=== PATIENT | female | born 1945 | race Caucasian/White ===

== ENCOUNTER → 2016-08-04 | Outpatient (CLI) | payer MEDICARE ==
[~2016-08-04] MED LIST: ACET167L PO; ASPI81CH43 GT; METO25TA5 PO; MULTTAB99 PO; NAPR220C PO; NITR400A5 TL
[2016-08-04 13:15] LABS: Albumin 4.3 g/dL (3.4-5.0); Bilirubin, Total 1.1 mg/dL (0.2-1.0); Total Protein 7.8 g/dL (6.4-8.2)
[2016-08-04 13:16] LABS: Bilirubin, Direct 0.3 mg/dL (0-0.2)
== END | disposition home or self-care (01) ==
LOC: LAB 08:21
PROVIDERS: ATTEND Internal Medicine Cardiovascular Disease
DX: E78.00 Pure hypercholesterolemia, unspecified (principal); K74.1 Hepatic sclerosis
CPT/HCPCS: 36415; 80061; 80076

== ENCOUNTER → 2017-09-21 | Outpatient (CLI) | payer MEDICARE ==
[2017-09-21 11:53] LABS: Urine Blood Negative /uL (Negative); Urine Specific Gravity 1.024 (1.001-1.035)
[2017-09-21 12:03] LABS: Basophils # (auto) 0.1 uL; Basophils % (auto) 1.1 % (0.0-2.0); Eosinophils # (auto) 0.2 uL; Eosinophils % (auto) 2.8 % (0.0-7.0); Hematocrit 47.8 % (36.0-46.0); Hemoglobin 15.9 g/dL (12.2-16.2); Lymphocytes # (auto) 1.1 uL; Lymphocytes % (auto) 14.2 % (10.0-50.0); Mean Corpuscular Hgb Conc. 33.2 g/dL (32.0-36.0); Mean Corpuscular Volume 90.2 fL (80.0-100.0); Monocytes # (auto) 0.5 uL; Monocytes % (auto) 6.3 % (0.0-12.0); Neutrophils # (auto) 5.8 uL; Neutrophils % (auto) 75.6 % (37.0-80.0); Nucleated Red Blood Cells % 0.4 %; Platelet Count (auto) 298 10^3/uL (140-450); Red Blood Cells 5.31 10^6/uL (4.0-5.20); Red Cell Distribution Width 14.2 % (11.8-14.3); White Blood Cell 7.7 10^3/uL (4.4-10.8)
[2017-09-21 12:07] LABS: Albumin 4.1 g/dL (3.4-5.0); Potassium 4.5 mmol/L (3.5-5.1); Total Protein 7.9 g/dL (6.4-8.2)
[2017-09-21 12:15] LABS: Free T4 (Free Thyroxine) 1.31 ng/dL (0.89-1.76)
[2017-09-21 12:53] LABS: BUN/Creatinine Ratio 14.6; Bilirubin, Total 0.7 mg/dL (0.2-1.0); Calcium 9.3 mg/dL (8.5-10.1)
== END | disposition home or self-care (01) ==
LOC: LAB 08:15
PROVIDERS: ATTEND Internal Medicine
DX: Z00.01 Encounter for general adult medical examination with abnormal findings (principal); E03.9 Hypothyroidism, unspecified; E11.9 Type 2 diabetes mellitus without complications; E55.9 Vitamin D deficiency, unspecified; D51.9 Vitamin B12 deficiency anemia, unspecified; N39.0 Urinary tract infection, site not specified
CPT/HCPCS: 36415; 80053; 80061; 81003; 82306; 82607; 83036; 84439; 84443; 85025

== ENCOUNTER → 2018-10-18 | Outpatient (CLI) | payer MEDICARE ==
[~2018-10-18] MED LIST changes: +ASPI81CH43 PO; +LISI-646 PO
[2018-10-18 09:33] LABS: Basophils # (auto) 0.1 uL; Basophils % (auto) 1.3 % (0.0-2.0); Eosinophils # (auto) 0.2 uL; Eosinophils % (auto) 2.6 % (0.0-7.0); Hematocrit 46.5 % (36.0-46.0); Hemoglobin 15.4 g/dL (12.2-16.2); Lymphocytes # (auto) 1.1 uL; Mean Corpuscular Hgb Conc. 33.1 g/dL (32.0-36.0); Mean Corpuscular Volume 90.5 fL (80.0-100.0); Monocytes # (auto) 0.4 uL; Monocytes % (auto) 7.2 % (0.0-12.0); Neutrophils # (auto) 4.2 uL; Neutrophils % (auto) 70.9 % (37.0-80.0); Nucleated Red Blood Cells % 0.1 %; Platelet Count (auto) 282 10^3/uL (140-450); Red Blood Cells 5.14 10^6/uL (4.0-5.20)
[2018-10-18 09:38] LABS: Potassium 4.5 mmol/L (3.5-5.1)
[2018-10-18 09:47] LABS: Albumin 4.1 g/dL (3.4-5.0); BUN/Creatinine Ratio 15.6; Bilirubin, Total 0.8 mg/dL (0.2-1.0); Calcium 9.3 mg/dL (8.5-10.1); Total Protein 7.7 g/dL (6.4-8.2)
== END | disposition home or self-care (01) ==
LOC: LAB 08:39
PROVIDERS: ATTEND Physician Assistant
DX: E78.2 Mixed hyperlipidemia (principal); I10 Essential (primary) hypertension; R42 Dizziness and giddiness; M54.5 Low back pain; Z95.1 Presence of aortocoronary bypass graft
CPT/HCPCS: 36415; 80053; 80061; 84443; 85025

== ENCOUNTER 2019-05-22 06:02 | Emergency (ER) | payer MEDICARE ==
[~2019-05-22] VITALS: Ht 167.6 cm; Wt 64.9 kg
[~2019-05-22 06:02] MED LIST changes: -ASPI81CH43 GT
[2019-05-22 06:43] VITALS: BP 147/69
[2019-05-22] MEDS ORDERED: HYDROcodone-ACET 5/325MG TAB PO ONE (07:15)
== END 2019-05-22 08:45 | disposition home or self-care (01) ==
LOC: EDBD 06:02 → ER 06:02
DX: M48.061 Spinal stenosis, lumbar region without neurogenic claudication (principal); M54.16 Radiculopathy, lumbar region; I11.0 Hypertensive heart disease with heart failure; I50.9 Heart failure, unspecified; E78.5 Hyperlipidemia, unspecified; Z87.440 Personal history of urinary (tract) infections; Z98.61 Coronary angioplasty status; Z95.1 Presence of aortocoronary bypass graft; Z88.2 Allergy status to sulfonamides
CPT/HCPCS: 72131; 81002

== ENCOUNTER → 2019-06-24 | Outpatient (CLI) | payer MEDICARE ==
[2019-06-24 11:00] LABS: Basophils # (auto) 0.1 uL; Basophils % (auto) 1.2 % (0.0-2.0); Eosinophils # (auto) 0.1 uL; Eosinophils % (auto) 1.5 % (0.0-7.0); Hematocrit 45.5 % (36.0-46.0); Hemoglobin 15.7 g/dL (12.2-16.2); Lymphocytes # (auto) 0.8 uL; Lymphocytes % (auto) 12.7 % (10.0-50.0); Mean Corpuscular Hemoglobin 31.1 pg (28.0-32.0); Mean Corpuscular Hgb Conc. 34.5 g/dL (32.0-36.0); Mean Corpuscular Volume 90.1 fL (80.0-100.0); Monocytes # (auto) 0.6 uL; Monocytes % (auto) 9.2 % (0.0-12.0); Neutrophils % (auto) 75.4 % (37.0-80.0); Nucleated Red Blood Cells % 0.1 %; Platelet Count (auto) 328 10^3/uL (140-450); Red Blood Cells 5.05 10^6/uL (4.0-5.20); Red Cell Distribution Width 14.3 % (11.8-14.3); White Blood Cell 6.6 10^3/uL (4.4-10.8)
[2019-06-24 11:23] LABS: Albumin 4.2 g/dL (3.4-5.0); Calcium 9.3 mg/dL (8.5-10.1); Potassium 3.8 mmol/L (3.5-5.1); Uric Acid 4.4 mg/dL (2.6-6.0)
[2019-06-24 11:28] LABS: BUN/Creatinine Ratio 13.1; Bilirubin, Total 0.7 mg/dL (0.2-1.0); Total Protein 8.1 g/dL (6.4-8.2)
== END | disposition home or self-care (01) ==
LOC: LAB 10:21
PROVIDERS: ATTEND Internal Medicine
DX: E78.00 Pure hypercholesterolemia, unspecified (principal); I10 Essential (primary) hypertension; M25.50 Pain in unspecified joint; M79.10 Myalgia, unspecified site
CPT/HCPCS: 36415; 80053; 80061; 82550; 84550; 85025; 86200; 86431

== ENCOUNTER → 2021-02-16 | Outpatient (CLI) | payer MEDICARE ==
[~2021-02-16] VITALS: Ht 157.5 cm; Wt 76.2 kg
[~2021-02-16] MED LIST changes: +ADENOSINE 64 MG in GIVE UN-DILUTED 0 ML IV ONE; +ADENOSINE 90 MG/30 ML INJ IV ONE; -LISI-646 PO; +LISI20TA28 PO
== END | disposition home or self-care (01) ==
LOC: Rad HDHVI 08:49
PROVIDERS: ATTEND Internal Medicine
DX: Z01.810 Encounter for preprocedural cardiovascular examination (principal); I10 Essential (primary) hypertension; E78.5 Hyperlipidemia, unspecified; R07.9 Chest pain, unspecified; I25.2 Old myocardial infarction; Z95.1 Presence of aortocoronary bypass graft; Z82.49 Family history of ischemic heart disease and other diseases of the circulatory system
CPT/HCPCS: 78452; 93005; 96374; 96375; A9500; J0153

== ENCOUNTER → 2021-06-14 | Outpatient (CLI) | payer MEDICARE ==
[~2021-06-14] MED LIST changes: -ADENOSINE 64 MG in GIVE UN-DILUTED 0 ML IV ONE; -ADENOSINE 90 MG/30 ML INJ IV ONE
[2021-06-14 11:26] LABS: Urine Blood Negative /uL (Negative); Urine Specific Gravity 1.026 (1.001-1.035)
[2021-06-14 11:33] LABS: Basophils # (auto) 0.1 10 ^3/uL (0-0.2); Basophils % (auto) 0.6 % (0.0-2.0); Eosinophils # (auto) 0.2 10 ^3/uL (0-0.8); Hematocrit 42.1 % (36.0-46.0); Hemoglobin 14.1 g/dL (12.2-16.2); Lymphocytes # (auto) 1.2 10 ^3/uL (0.4-5.4); Lymphocytes % (auto) 15.2 % (10.0-50.0); Mean Corpuscular Hemoglobin 29.8 pg (28.0-32.0); Mean Corpuscular Hgb Conc. 33.4 g/dL (32.0-36.0); Mean Corpuscular Volume 89.2 fL (80.0-100.0); Monocytes # (auto) 0.7 10 ^3/uL (0-1.3); Monocytes % (auto) 8.1 % (0.0-12.0); Neutrophils % (auto) 74.1 % (37.0-80.0); Red Blood Cells 4.72 10^6/uL (4.0-5.20); Red Cell Distribution Width 14.5 % (11.8-14.3); White Blood Cell 8.1 10^3/uL (4.4-10.8)
[2021-06-14 11:34] LABS: Potassium 4.4 mmol/L (3.5-5.1)
[2021-06-14 11:41] LABS: BUN/Creatinine Ratio 20.5; Bilirubin, Total 0.5 mg/dL (0.2-1.0); Calcium 9.2 mg/dL (8.5-10.1); Free T4 (Free Thyroxine) 1.08 ng/dL (0.89-1.76); Total Protein 7.9 g/dL (6.4-8.2)
== END | disposition home or self-care (01) ==
LOC: LAB 10:06
PROVIDERS: ATTEND Internal Medicine
DX: E11.9 Type 2 diabetes mellitus without complications (principal); D51.3 Other dietary vitamin B12 deficiency anemia; D64.9 Anemia, unspecified; E55.9 Vitamin D deficiency, unspecified; I10 Essential (primary) hypertension; R00.2 Palpitations; R53.1 Weakness; R30.0 Dysuria
CPT/HCPCS: 36415; 80053; 80061; 81003; 82607; 83036; 84439; 84443; 85025; 87086

== ENCOUNTER 2021-10-23 18:49 | Inpatient (IN) | payer MEDICARE ==
[~2021-10-23] VITALS: Ht 160 cm; Wt 81.0 kg
[2021-10-23 20:31] LABS: Basophils # (auto) 0.1 10 ^3/uL (0-0.2); Basophils % (auto) 0.5 % (0.0-2.0); Eosinophils # (auto) 0 10 ^3/uL (0-0.8); Eosinophils % (auto) 0.1 % (0.0-7.0); Hematocrit 46.5 % (36.0-46.0); Hemoglobin 15.9 g/dL (12.2-16.2); Lymphocytes # (auto) 0.9 10 ^3/uL (0.4-5.4); Lymphocytes % (auto) 7.1 % (10.0-50.0); Mean Corpuscular Hemoglobin 29.3 pg (28.0-32.0); Mean Corpuscular Hgb Conc. 34.2 g/dL (32.0-36.0); Mean Corpuscular Volume 85.8 fL (80.0-100.0); Monocytes % (auto) 7.5 % (0.0-12.0); Neutrophils % (auto) 84.8 % (37.0-80.0); Red Blood Cells 5.42 10^6/uL (4.0-5.20); Red Cell Distribution Width 13.4 % (11.8-14.3)
[2021-10-23 20:46] LABS: Albumin 4.2 g/dL (3.4-5.0); BUN/Creatinine Ratio 33.8; Calcium 9.1 mg/dL (8.5-10.1); Magnesium 3.6 mg/dL (1.6-2.6)
[2021-10-23 20:58] LABS: Total Protein 8.8 g/dL (6.4-8.2)
[2021-10-23 21:14] LABS: INR 1.12 (0.9-1.15); Partial Thromboplastin Time 29.7 sec (23.6-33.0)
[2021-10-23 21:20] LABS: Potassium 2.6 mmol/L (3.5-5.1)
[2021-10-24] MEDS ORDERED: SOD CHL 0.9%/ KCL 20MEQ 1,000 ML IV ONE
[2021-10-24] MEDS ORDERED: ASPirin 325 MG TAB PO ONE
[2021-10-24] MEDS ORDERED: TEMAZEPAM 15 MG CAP PO PRN (00:45)
[2021-10-24] MEDS ORDERED: ENOXAPARIN SOD 100 MG/1 ML SYRINGE SC ONE (00:45)
[2021-10-24] MEDS ORDERED: ONDANSETRON HCL 4 MG/2 ML VIAL IV PRN (00:45)
[2021-10-24] MEDS ORDERED: NITROGLYCERIN 0.4 MG SL TAB SL PRN (00:45)
[2021-10-24] MEDS ORDERED: MORPHINE SULFATE INJ 2 MG/ml SYRG IV PRN (00:45)
[2021-10-24 02:20] LABS: Urine Bacteria MANY /hpf (None Seen); Urine Blood Negative /uL (Negative); Urine Hyaline Cast MANY /lpf (0 - 2); Urine Specific Gravity 1.017 (1.001-1.035); Urine WBC 507 /hpf (0 - 5); Urine WBC Clumps PRESENT /hpf (None Seen)
[2021-10-24 08:00] VITALS: BP 111/61
[2021-10-24 08:40] LABS: Basophils # (auto) 0.1 10 ^3/uL (0-0.2); Basophils % (auto) 0.8 % (0.0-2.0); Eosinophils # (auto) 0 10 ^3/uL (0-0.8); Eosinophils % (auto) 0.4 % (0.0-7.0); Hematocrit 41.2 % (36.0-46.0); Hemoglobin 14.2 g/dL (12.2-16.2); Lymphocytes # (auto) 1.5 10 ^3/uL (0.4-5.4); Lymphocytes % (auto) 15.1 % (10.0-50.0); Mean Corpuscular Hemoglobin 29.8 pg (28.0-32.0); Mean Corpuscular Hgb Conc. 34.6 g/dL (32.0-36.0); Mean Corpuscular Volume 86.4 fL (80.0-100.0); Monocytes # (auto) 0.9 10 ^3/uL (0-1.3); Monocytes % (auto) 8.9 % (0.0-12.0); Neutrophils # (auto) 7.5 10 ^3/uL (1.6-8.6); Neutrophils % (auto) 74.8 % (37.0-80.0); Nucleated Red Blood Cells % 0.1 %; Red Blood Cells 4.77 10^6/uL (4.0-5.20); Red Cell Distribution Width 13.6 % (11.8-14.3); White Blood Cell 10.1 10^3/uL (4.4-10.8)
[2021-10-24 08:43] LABS: Albumin 3.6 g/dL (3.4-5.0); Calcium 8.2 mg/dL (8.5-10.1); Potassium 3.1 mmol/L (3.5-5.1)
[2021-10-24 08:46] LABS: BUN/Creatinine Ratio 37.7; Total Protein 7.7 g/dL (6.4-8.2)
[2021-10-24] MEDS: SODIUM CHLORIDE 0.9% 1,000 ML IV SCH ×2 (09:48→23:43)
[2021-10-24] MEDS: cefTRIAXone 1GM/50ML D5W 50 ML IV SCH (09:48)
[2021-10-24] MEDS: PANTOPRAZOLE 40 MG TAB PO SCH (09:49)
[2021-10-24] MEDS ORDERED: METOPROLOL SUCCINATE XL 50 MG TAB PO SCH (10:00)
[2021-10-24] MEDS ORDERED: ASPirin 81 mg TAB PO SCH (10:00)
[2021-10-24] MEDS ORDERED: SACUBITRIL-VALSARTAN 24mg/26mg TAB PO SCH (10:00)
[2021-10-24] MEDS ORDERED: POTASSIUM EFFERVESENT TAB 25 MEQ PO ONE ×2 (10:00)
[2021-10-24] MEDS: CARVEDILOL 3.125 MG TAB PO SCH ×2 (10:47→23:10)
[2021-10-24 12:00] VITALS: BP 113/57
[2021-10-24] MEDS ORDERED: SACU1TAB PO (12:53)
[2021-10-24] MEDS ORDERED: ACET-1158 PO (13:05)
[2021-10-24 15:12] LABS: BUN/Creatinine Ratio 40.1; Calcium 8.4 mg/dL (8.5-10.1); Potassium 3.3 mmol/L (3.5-5.1)
[2021-10-24 16:00] VITALS: BP 105/55
[2021-10-24 19:19] LABS: Urine Bacteria FEW /hpf (None Seen); Urine Blood Negative /uL (Negative); Urine Specific Gravity 1.016 (1.001-1.035); Urine WBC 28 /hpf (0 - 5)
[2021-10-24 20:00] VITALS: BP 136/55
[2021-10-24 21:51] VITALS: BP 106/55
[2021-10-24] MEDS: ATORVASTATIN 20 MG TAB PO SCH (23:10)
[2021-10-25] VITALS (7 sets, daily range): BP systolic 111–157; BP diastolic 52–66
[2021-10-25 05:14] LABS: Basophils # (auto) 0.1 10 ^3/uL (0-0.2); Eosinophils # (auto) 0.2 10 ^3/uL (0-0.8); Eosinophils % (auto) 3.2 % (0.0-7.0); Hematocrit 37.9 % (36.0-46.0); Hemoglobin 12.9 g/dL (12.2-16.2); Lymphocytes # (auto) 1.9 10 ^3/uL (0.4-5.4); Lymphocytes % (auto) 25.4 % (10.0-50.0); Mean Corpuscular Hemoglobin 30.1 pg (28.0-32.0); Mean Corpuscular Volume 88.8 fL (80.0-100.0); Monocytes # (auto) 0.8 10 ^3/uL (0-1.3); Monocytes % (auto) 11.5 % (0.0-12.0); Neutrophils # (auto) 4.3 10 ^3/uL (1.6-8.6); Neutrophils % (auto) 58.9 % (37.0-80.0); Red Blood Cells 4.27 10^6/uL (4.0-5.20); Red Cell Distribution Width 13.5 % (11.8-14.3); White Blood Cell 7.3 10^3/uL (4.4-10.8)
[2021-10-25] MEDS: SODIUM CHLORIDE 0.9% 1,000 ML IV SCH ×2 (05:30→17:17)
[2021-10-25 05:33] LABS: Albumin 3.1 g/dL (3.4-5.0); BUN/Creatinine Ratio 43.2; Calcium 8.3 mg/dL (8.5-10.1); Magnesium 3.1 mg/dL (1.6-2.6); Potassium 3.1 mmol/L (3.5-5.1)
[2021-10-25 05:36] LABS: Bilirubin, Total 0.5 mg/dL (0.2-1.0); Total Protein 6.6 g/dL (6.4-8.2)
[2021-10-25] MEDS ORDERED: POTASSIUM EFFERVESENT TAB 25 MEQ PO ONE (08:00)
[2021-10-25] MEDS: cefTRIAXone 1GM/50ML D5W 50 ML IV SCH (09:29)
[2021-10-25] MEDS: ASPirin 81 mg TAB PO SCH (09:31)
[2021-10-25] MEDS: ENOXAPARIN SOD 150 MG/1 ML SYRINGE SC SCH (09:33)
[2021-10-25] MEDS: PANTOPRAZOLE 40 MG TAB PO SCH (09:33)
[2021-10-25] MEDS: CARVEDILOL 3.125 MG TAB PO SCH ×2 (09:33→21:52)
[2021-10-25] MEDS: ACETAMINOPHEN 325 MG TAB PO PRN (21:52)
[2021-10-25] MEDS: ATORVASTATIN 20 MG TAB PO SCH (21:53)
[2021-10-26] MEDS: SODIUM CHLORIDE 0.9% 1,000 ML IV SCH ×2 (03:03→06:44)
[2021-10-26 05:00] VITALS: BP 124/53
[2021-10-26 06:31] LABS: BUN/Creatinine Ratio 33.9; Potassium 3.5 mmol/L (3.5-5.1)
[2021-10-26 08:00] VITALS: BP 142/66
[2021-10-26] MEDS: cefTRIAXone 1GM/50ML D5W 50 ML IV SCH (09:15)
[2021-10-26] MEDS: CARVEDILOL 3.125 MG TAB PO SCH ×2 (09:16→21:50)
[2021-10-26] MEDS: ENOXAPARIN SOD 150 MG/1 ML SYRINGE SC SCH (09:16)
[2021-10-26] MEDS: ASPirin 81 mg TAB PO SCH (09:16)
[2021-10-26 12:00] VITALS: BP 128/57
[2021-10-26 16:00] VITALS: BP 120/65
[2021-10-26] MEDS: ATORVASTATIN 20 MG TAB PO SCH (21:50)
[2021-10-26 22:00] VITALS: BP 131/58
[2021-10-27 05:00] VITALS: BP 142/68
[2021-10-27] MEDS: ACETAMINOPHEN 325 MG TAB PO PRN ×2 (06:00→16:12)
[2021-10-27 06:23] LABS: BUN/Creatinine Ratio 22.9; Calcium 8.5 mg/dL (8.5-10.1); Magnesium 2.2 mg/dL (1.6-2.6); Potassium 4.1 mmol/L (3.5-5.1)
[2021-10-27 09:00] VITALS: BP 143/71
[2021-10-27] MEDS: ASPirin 81 mg TAB PO SCH (09:12)
[2021-10-27] MEDS: cefTRIAXone 1GM/50ML D5W 50 ML IV SCH (09:12)
[2021-10-27] MEDS: ENOXAPARIN SOD 150 MG/1 ML SYRINGE SC SCH (09:13)
[2021-10-27] MEDS: CARVEDILOL 3.125 MG TAB PO SCH ×2 (09:13→21:54)
[2021-10-27 13:00] VITALS: BP 144/75
[2021-10-27 16:36] VITALS: BP 133/59
[2021-10-27 17:03] LABS: Basophils # (auto) 0.1 10 ^3/uL (0-0.2); Basophils % (auto) 0.7 % (0.0-2.0); Eosinophils # (auto) 0.4 10 ^3/uL (0-0.8); Eosinophils % (auto) 4.1 % (0.0-7.0); Hematocrit 36.5 % (36.0-46.0); Hemoglobin 12.3 g/dL (12.2-16.2); Lymphocytes # (auto) 1.7 10 ^3/uL (0.4-5.4); Lymphocytes % (auto) 20.2 % (10.0-50.0); Mean Corpuscular Hemoglobin 30.1 pg (28.0-32.0); Mean Corpuscular Hgb Conc. 33.7 g/dL (32.0-36.0); Mean Corpuscular Volume 89.4 fL (80.0-100.0); Monocytes # (auto) 0.8 10 ^3/uL (0-1.3); Neutrophils # (auto) 5.6 10 ^3/uL (1.6-8.6); Nucleated Red Blood Cells % 0.1 %; Red Blood Cells 4.08 10^6/uL (4.0-5.20); Red Cell Distribution Width 13.6 % (11.8-14.3); White Blood Cell 8.6 10^3/uL (4.4-10.8)
[2021-10-27 17:19] LABS: BUN/Creatinine Ratio 21.1; Calcium 8.4 mg/dL (8.5-10.1); Potassium 4.1 mmol/L (3.5-5.1)
[2021-10-27 17:22] LABS: INR 1.11 (0.9-1.15); Partial Thromboplastin Time 46.3 sec (23.6-33.0)
[2021-10-27] MEDS: ATORVASTATIN 20 MG TAB PO SCH (21:55)
[2021-10-27 22:00] VITALS: BP 125/65
[2021-10-28 07:46] LABS: Basophils # (auto) 0.1 10 ^3/uL (0-0.2); Basophils % (auto) 0.8 % (0.0-2.0); Eosinophils # (auto) 0.5 10 ^3/uL (0-0.8); Eosinophils % (auto) 5.2 % (0.0-7.0); Lymphocytes # (auto) 1.9 10 ^3/uL (0.4-5.4); Lymphocytes % (auto) 21.4 % (10.0-50.0); Mean Corpuscular Hemoglobin 30.4 pg (28.0-32.0); Mean Corpuscular Hgb Conc. 33.5 g/dL (32.0-36.0); Monocytes # (auto) 0.7 10 ^3/uL (0-1.3); Monocytes % (auto) 7.6 % (0.0-12.0); Neutrophils # (auto) 5.8 10 ^3/uL (1.6-8.6); Nucleated Red Blood Cells % 0.1 %; Red Blood Cells 4.29 10^6/uL (4.0-5.20); Red Cell Distribution Width 13.7 % (11.8-14.3); White Blood Cell 8.9 10^3/uL (4.4-10.8)
[2021-10-28 08:03] LABS: INR 1.05 (0.9-1.15); Partial Thromboplastin Time 29.6 sec (23.6-33.0)
[2021-10-28 08:13] LABS: BUN/Creatinine Ratio 21.8; Potassium 4.2 mmol/L (3.5-5.1)
[2021-10-28 09:33] VITALS: BP 158/74
[2021-10-28] MEDS: ENOXAPARIN SOD 150 MG/1 ML SYRINGE SC SCH (09:58)
[2021-10-28] MEDS ORDERED: ANGIOMAX 250 MG VIAL IV ONE (11:06)
[2021-10-28] MEDS ORDERED: MIDAZOLAM HCL 2MG/2ML 2ml VIAL (1mg/ml) ONE (11:06)
[2021-10-28] MEDS ORDERED: fentaNYL CITRATE 100 MCG/2 ML VL ONE (11:06)
[2021-10-28] MEDS ORDERED: SODIUM CHL 0.9% 50 ML ONE (11:06)
[2021-10-28] MEDS ORDERED: LIDOCAINE 2%HCL (LOCAL ANESTH.) INJ 10ml MDV ONE (11:09)
[2021-10-28] MEDS ORDERED: IODIXANOL 320MG/ML 100ML BTL IV ONE ×2 (11:09→11:31)
[2021-10-28] MEDS ORDERED: TICAGRELOR 90 MG TAB ONE (11:43)
[2021-10-28 13:55] VITALS: BP 151/63
[2021-10-28] MEDS: ASPirin 81 mg TAB PO SCH (14:47)
[2021-10-28] MEDS: cefTRIAXone 1GM/50ML D5W 50 ML IV SCH (14:47)
[2021-10-28] MEDS: CARVEDILOL 3.125 MG TAB PO SCH ×2 (14:48→22:28)
[2021-10-28 17:04] VITALS: BP 145/77
[2021-10-28] MEDS: ACETAMINOPHEN 325 MG TAB PO PRN (20:15)
[2021-10-28 22:00] VITALS: BP 125/63
[2021-10-28] MEDS: TICAGRELOR 90 MG TAB PO SCH (22:27)
[2021-10-28] MEDS: ATORVASTATIN 20 MG TAB PO SCH (22:28)
[2021-10-29 05:00] VITALS: BP 145/74
[2021-10-29 06:14] LABS: Calcium 8.5 mg/dL (8.5-10.1); Potassium 4.7 mmol/L (3.5-5.1)
[2021-10-29 06:16] LABS: BUN/Creatinine Ratio 19.8
[2021-10-29 08:00] VITALS: BP 134/74
[2021-10-29 09:00] VITALS: BP_SYST 134; BP_SYST 145; BP_DIAS 74; BP_DIAS 83
[2021-10-29 09:21] LABS: Basophils # (auto) 0.1 10 ^3/uL (0-0.2); Basophils % (auto) 0.6 % (0.0-2.0); Eosinophils # (auto) 0.3 10 ^3/uL (0-0.8); Eosinophils % (auto) 3.8 % (0.0-7.0); Hemoglobin 12.2 g/dL (12.2-16.2); Lymphocytes # (auto) 1.1 10 ^3/uL (0.4-5.4); Lymphocytes % (auto) 12.3 % (10.0-50.0); Mean Corpuscular Hemoglobin 29.7 pg (28.0-32.0); Mean Corpuscular Hgb Conc. 32.9 g/dL (32.0-36.0); Mean Corpuscular Volume 90.3 fL (80.0-100.0); Monocytes # (auto) 0.6 10 ^3/uL (0-1.3); Monocytes % (auto) 6.7 % (0.0-12.0); Neutrophils # (auto) 6.7 10 ^3/uL (1.6-8.6); Neutrophils % (auto) 76.6 % (37.0-80.0); Nucleated Red Blood Cells % 0.1 %; Red Cell Distribution Width 13.5 % (11.8-14.3); White Blood Cell 8.8 10^3/uL (4.4-10.8)
[2021-10-29] MEDS: cefTRIAXone 1GM/50ML D5W 50 ML IV SCH (09:31)
[2021-10-29] MEDS: ASPirin 81 mg TAB PO SCH (09:31)
[2021-10-29] MEDS: CARVEDILOL 3.125 MG TAB PO SCH (09:32)
[2021-10-29] MEDS: TICAGRELOR 90 MG TAB PO SCH ×2 (09:32→17:10)
[2021-10-29 13:00] VITALS: BP_SYST 135; BP_DIAS 57; BP_DIAS 75
[2021-10-29] MEDS ORDERED: ATOR20TA PO (15:10)
[2021-10-29] MEDS ORDERED: TICA90TA PO (15:10)
[2021-10-29] MEDS ORDERED: SACU1TAB PO (15:10)
[2021-10-29] MEDS ORDERED: CARV6.25 PO (15:10)
[2021-10-29] MEDS ORDERED: ASPI-378 PO (15:11)
[2021-10-29 16:38] VITALS: BP 134/74
== END 2021-10-29 17:58 | disposition home health service (06) | DRG 246 ==
LOC: EDUNIT# 18:49 → ER 18:49 → EDBD 18:49 → TELE 10-24 00:45 → TELE-WESTW 10-24 03:13
PROVIDERS: ADMIT Nurse Practitioner; ATTEND Internal Medicine
PROC: 4A023N7 Measurement of Cardiac Sampling and Pressure, Left Heart, Percutaneous Approach (ICD-10-PCS; principal; 2021-10-28)
PROC: 027034Z Dilation of Coronary Artery, One Artery with Drug-eluting Intraluminal Device, Percutaneous Approach (ICD-10-PCS; 2021-10-28)
PROC: B211YZZ Fluoroscopy of Multiple Coronary Arteries using Other Contrast (ICD-10-PCS; 2021-10-28)
PROC: B215YZZ Fluoroscopy of Left Heart using Other Contrast (ICD-10-PCS; 2021-10-28)
DX: I21.4 Non-ST elevation (NSTEMI) myocardial infarction (principal); I50.43 Acute on chronic combined systolic (congestive) and diastolic (congestive) heart failure; N17.0 Acute kidney failure with tubular necrosis; N39.0 Urinary tract infection, site not specified; E87.1 Hypo-osmolality and hyponatremia; I13.0 Hypertensive heart and chronic kidney disease with heart failure and stage 1 through stage 4 chronic kidney disease, or unspecified chronic kidney disease; E87.6 Hypokalemia; E86.0 Dehydration; I44.7 Left bundle-branch block, unspecified; I25.10 Atherosclerotic heart disease of native coronary artery without angina pectoris; Z20.822 Contact with and (suspected) exposure to COVID-19; R73.03 Prediabetes; N18.32 Chronic kidney disease, stage 3b; B34.9 Viral infection, unspecified; E66.9 Obesity, unspecified; E78.5 Hyperlipidemia, unspecified; M19.90 Unspecified osteoarthritis, unspecified site; Z68.32 Body mass index [BMI] 32.0-32.9, adult; Z82.0 Family history of epilepsy and other diseases of the nervous system; Z82.49 Family history of ischemic heart disease and other diseases of the circulatory system; Z86.73 Personal history of transient ischemic attack (TIA), and cerebral infarction without residual deficits; Z95.1 Presence of aortocoronary bypass graft; Z88.8 Allergy status to other drugs, medicaments and biological substances
CPT/HCPCS: 36415; 71045; 76775; 80048; 80053; 80061; 81001; 82306; 83036; 83605; 83735; 83880; 84443; 84484; 85025; 85379; 85610; 85730; 86850; 86900; 86901; 87045; 87086; 92928; 93005; 93458; 96365; 96372; 97110; 97116; 97163; 97530; 99152; 99153; 99291; C1874; G0378; J0696; J2001; J2250; Q9967

== ENCOUNTER → 2021-12-20 | Outpatient (CLI) | payer MEDICARE ==
[~2021-12-20] MED LIST changes: +ACET-1158 PO; -ACET167L PO; -ASPI81CH43 PO; +CIP250T PO; +CLOP75TA70 PO; -LISI20TA28 PO; +MET500T PO; -METO25TA5 PO; -MULTTAB99 PO; -NAPR220C PO; -NITR400A5 TL
[2021-12-20 13:06] LABS: Basophils # (auto) 0.1 10 ^3/uL (0-0.2); Basophils % (auto) 0.8 % (0.0-2.0); Eosinophils # (auto) 0.1 10 ^3/uL (0-0.8); Eosinophils % (auto) 0.9 % (0.0-7.0); Hemoglobin 14.8 g/dL (12.2-16.2); Lymphocytes % (auto) 12.7 % (10.0-50.0); Mean Corpuscular Hemoglobin 30.1 pg (28.0-32.0); Mean Corpuscular Hgb Conc. 32.8 g/dL (32.0-36.0); Mean Corpuscular Volume 91.7 fL (80.0-100.0); Monocytes # (auto) 0.6 10 ^3/uL (0-1.3); Monocytes % (auto) 8.1 % (0.0-12.0); Neutrophils # (auto) 5.9 10 ^3/uL (1.6-8.6); Neutrophils % (auto) 77.5 % (37.0-80.0); Red Blood Cells 4.91 10^6/uL (4.0-5.20); Red Cell Distribution Width 14.2 % (11.8-14.3); White Blood Cell 7.7 10^3/uL (4.4-10.8)
[2021-12-20 13:28] LABS: BUN/Creatinine Ratio 10.3; Bilirubin, Total 0.6 mg/dL (0.2-1.0); Calcium 9.5 mg/dL (8.5-10.1)
[2021-12-20 14:02] LABS: Potassium 2.9 mmol/L (3.5-5.1)
== END | disposition home or self-care (01) ==
LOC: LAB 09:56
PROVIDERS: ATTEND Internal Medicine
DX: I10 Essential (primary) hypertension (principal); D64.9 Anemia, unspecified
CPT/HCPCS: 36415; 80053; 85025

== ENCOUNTER → 2022-02-07 | Outpatient (CLI) | payer MEDICARE ==
[2022-02-07 08:59] LABS: Basophils # (auto) 0.1 10 ^3/uL (0-0.2); Basophils % (auto) 0.8 % (0.0-2.0); Eosinophils # (auto) 0.2 10 ^3/uL (0-0.8); Eosinophils % (auto) 2.5 % (0.0-7.0); Hemoglobin 13.4 g/dL (12.2-16.2); Mean Corpuscular Hgb Conc. 33.5 g/dL (32.0-36.0); Mean Corpuscular Volume 89.5 fL (80.0-100.0); Monocytes # (auto) 0.5 10 ^3/uL (0-1.3); Monocytes % (auto) 7.5 % (0.0-12.0); Neutrophils # (auto) 5.2 10 ^3/uL (1.6-8.6); Neutrophils % (auto) 75.2 % (37.0-80.0); Red Blood Cells 4.47 10^6/uL (4.0-5.20); Red Cell Distribution Width 13.9 % (11.8-14.3); White Blood Cell 6.9 10^3/uL (4.4-10.8)
== END | disposition home or self-care (01) ==
LOC: LAB 08:40
PROVIDERS: ATTEND Internal Medicine
DX: I25.10 Atherosclerotic heart disease of native coronary artery without angina pectoris (principal); I10 Essential (primary) hypertension; E87.6 Hypokalemia
CPT/HCPCS: 36415; 84132; 84443; 85025

== ENCOUNTER 2022-05-09 11:18 | Inpatient (IN) | payer MEDICARE, MEDICAID ==
[~2022-05-09] VITALS: Ht 167.6 cm; Wt 79.5 kg
[2022-05-09 12:08] LABS: Basophils # (auto) 0.1 10 ^3/uL (0-0.2); Eosinophils # (auto) 0.1 10 ^3/uL (0-0.8); Eosinophils % (auto) 0.3 % (0.0-7.0); Hemoglobin 15.3 g/dL (12.2-16.2); Red Cell Distribution Width 14.1 % (11.8-14.3)
[2022-05-09 12:12] LABS: Basophils % (auto) 0.4 % (0.0-2.0); Hematocrit 43.8 % (36.0-46.0); Lymphocytes # (auto) 0.9 10 ^3/uL (0.4-5.4); Lymphocytes % (auto) 4.8 % (10.0-50.0); Mean Corpuscular Hemoglobin 29.9 pg (28.0-32.0); Mean Corpuscular Hgb Conc. 35.1 g/dL (32.0-36.0); Mean Corpuscular Volume 85.4 fL (80.0-100.0); Monocytes # (auto) 1.2 10 ^3/uL (0-1.3); Neutrophils # (auto) 17.6 10 ^3/uL (1.6-8.6); Neutrophils % (auto) 88.5 % (37.0-80.0); Red Blood Cells 5.12 10^6/uL (4.0-5.20); White Blood Cell 19.9 10^3/uL (4.4-10.8)
[2022-05-09 12:28] LABS: Albumin 3.8 g/dL (3.4-5.0); Calcium 8.5 mg/dL (8.5-10.1); Potassium 3.9 mmol/L (3.5-5.1)
[2022-05-09 12:32] LABS: BUN/Creatinine Ratio 29.6; Bilirubin, Total 0.6 mg/dL (0.2-1.0); Total Protein 7.6 g/dL (6.4-8.2)
[2022-05-09] MEDS ORDERED: ONDANSETRON HCL 4 MG/2 ML VIAL IV ONE (13:15)
[2022-05-09] MEDS ORDERED: KETOROLAC TROMETH 30 MG/ML 1ML VIAL IV ONE (13:15)
[2022-05-09] MEDS ORDERED: SODIUM CHLORIDE 0.9% 500 ML IV ONE (13:15)
[2022-05-09] MEDS ORDERED: ASPirin 325 MG TAB PO ONE (14:15)
[2022-05-09] MEDS ORDERED: SODIUM CHLORIDE 0.9% 1,000 ML IV ONE (17:45)
[2022-05-09] MEDS ORDERED: ATOR20TA50 PO (18:10)
[2022-05-09 18:14] LABS: Urine Bacteria FEW /hpf (None Seen); Urine Blood 2+ /uL (Negative); Urine Hyaline Cast MOD /lpf (0 - 2); Urine Specific Gravity 1.014 (1.001-1.035); Urine WBC 589 /hpf (0 - 5); Urine WBC Clumps PRESENT /hpf (None Seen)
[2022-05-09] MEDS ORDERED: NITROGLYCERIN 0.4 MG SL TAB SL PRN (18:15)
[2022-05-09] MEDS ORDERED: MORPHINE SULFATE INJ 2 MG/ml SYRG IV PRN (18:15)
[2022-05-09] MEDS ORDERED: cefTRIAXone 1GM/50ML D5W 50 ML IV ONE (18:30)
[2022-05-09 18:54] LABS: Cholesterol 190 mg/dL (< 200)
[2022-05-09 18:56] LABS: HDL Cholesterol 37 mg/dL (40-59); LDL Cholesterol 148 mg/dL (< 100); Triglycerides 66 mg/dL (< 150)
[2022-05-09] MEDS ORDERED: SODIUM CHLORIDE 0.9% 2,000 ML IV ONE (19:15)
[2022-05-09 19:27] LABS: INR 1.09 (0.9-1.15); Partial Thromboplastin Time 27.9 sec (24.6-33.4)
[2022-05-09] MEDS: SODIUM CHLORIDE 0.9% 1,000 ML IV SCH (21:50)
[2022-05-09 22:00] VITALS: BP 106/74
[2022-05-10] MEDS ORDERED: SACU1TAB PO (01:49)
[2022-05-10] MEDS ORDERED: NAPR1TAB93 PO (01:49)
[2022-05-10] MEDS ORDERED: ASPI-543 PO (01:49)
[2022-05-10] MEDS ORDERED: BENZ100C97 PO (01:49)
[2022-05-10 05:00] VITALS: BP 100/45
[2022-05-10] MEDS: SODIUM CHLORIDE 0.9% 1,000 ML IV SCH ×2 (05:46→13:45)
[2022-05-10 07:06] LABS: Albumin 2.9 g/dL (3.4-5.0); Calcium 7.8 mg/dL (8.5-10.1); Potassium 3.5 mmol/L (3.5-5.1)
[2022-05-10 07:09] LABS: BUN/Creatinine Ratio 35.5; Basophils # (auto) 0 10 ^3/uL (0-0.2); Basophils % (auto) 0.4 % (0.0-2.0); Bilirubin, Total 0.4 mg/dL (0.2-1.0); Eosinophils # (auto) 0.1 10 ^3/uL (0-0.8); Eosinophils % (auto) 1.2 % (0.0-7.0); Hematocrit 39.4 % (36.0-46.0); Hemoglobin 13.7 g/dL (12.2-16.2); Lymphocytes % (auto) 10.5 % (10.0-50.0); Mean Corpuscular Hemoglobin 30.2 pg (28.0-32.0); Mean Corpuscular Hgb Conc. 34.7 g/dL (32.0-36.0); Mean Corpuscular Volume 87.2 fL (80.0-100.0); Monocytes # (auto) 0.7 10 ^3/uL (0-1.3); Monocytes % (auto) 7.2 % (0.0-12.0); Neutrophils # (auto) 7.9 10 ^3/uL (1.6-8.6); Neutrophils % (auto) 80.7 % (37.0-80.0); Red Blood Cells 4.52 10^6/uL (4.0-5.20); Red Cell Distribution Width 14.3 % (11.8-14.3); Total Protein 6.6 g/dL (6.4-8.2); White Blood Cell 9.8 10^3/uL (4.4-10.8)
[2022-05-10 09:00] VITALS: BP 101/50
[2022-05-10 13:00] VITALS: BP 101/54
[2022-05-10] MEDS: cefTRIAXone 1GM/50ML D5W 50 ML IV SCH (15:38)
[2022-05-10 17:00] VITALS: BP 111/54
[2022-05-10 20:00] VITALS: BP 118/57
[2022-05-10 22:00] VITALS: BP 118/57
[2022-05-10] MEDS: ATORVASTATIN 20 MG TAB PO SCH (22:14)
[2022-05-11] MEDS: SODIUM CHLORIDE 0.9% 1,000 ML IV SCH ×2 (03:05→16:50)
[2022-05-11 05:00] VITALS: BP 132/66
[2022-05-11 07:32] LABS: Basophils # (auto) 0.1 10 ^3/uL (0-0.2); Basophils % (auto) 0.9 % (0.0-2.0); Eosinophils # (auto) 0.2 10 ^3/uL (0-0.8); Eosinophils % (auto) 2.1 % (0.0-7.0); Hematocrit 37.2 % (36.0-46.0); Hemoglobin 12.6 g/dL (12.2-16.2); Lymphocytes # (auto) 0.9 10 ^3/uL (0.4-5.4); Lymphocytes % (auto) 11.1 % (10.0-50.0); Mean Corpuscular Hemoglobin 29.9 pg (28.0-32.0); Mean Corpuscular Volume 88.1 fL (80.0-100.0); Monocytes # (auto) 0.8 10 ^3/uL (0-1.3); Monocytes % (auto) 10.5 % (0.0-12.0); Neutrophils # (auto) 5.9 10 ^3/uL (1.6-8.6); Neutrophils % (auto) 75.4 % (37.0-80.0); Red Blood Cells 4.22 10^6/uL (4.0-5.20); Red Cell Distribution Width 14.1 % (11.8-14.3); White Blood Cell 7.9 10^3/uL (4.4-10.8)
[2022-05-11 07:41] LABS: Calcium 8.5 mg/dL (8.5-10.1)
[2022-05-11 07:46] LABS: BUN/Creatinine Ratio 40.1
[2022-05-11 08:52] VITALS: BP 133/56
[2022-05-11] MEDS: CLOPIDOGREL BISULFATE 75 MG TAB PO SCH (08:53)
[2022-05-11] MEDS: ASPirin 81 mg TAB PO SCH (08:53)
[2022-05-11] MEDS: cefTRIAXone 1GM/50ML D5W 50 ML IV SCH (08:53)
[2022-05-11] MEDS ORDERED: traMADol HCL 50 MG TAB PO PRN (12:30)
[2022-05-11 12:42] LABS: Urine Bacteria NONE SEEN /hpf (None Seen); Urine Blood TRACE /uL (Negative); Urine Specific Gravity 1.016 (1.001-1.035); Urine WBC 88 /hpf (0 - 5); Urine WBC Clumps PRESENT /hpf (None Seen)
[2022-05-11 12:54] LABS: Protein, Urine 41.4 mg/dL (0.0-11.9)
[2022-05-11 13:04] VITALS: BP 121/58
[2022-05-11 17:07] VITALS: BP 131/61
[2022-05-11] MEDS: ATORVASTATIN 20 MG TAB PO SCH (21:20)
[2022-05-11 22:00] VITALS: BP 114/56
[2022-05-12] MEDS ORDERED: diphenhdrAMINE HCL 25 MG CAP PO ONE (03:30)
[2022-05-12 05:00] VITALS: BP 136/49
[2022-05-12 08:07] LABS: Calcium 8.4 mg/dL (8.5-10.1); Potassium 4.8 mmol/L (3.5-5.1)
[2022-05-12 08:11] LABS: BUN/Creatinine Ratio 29.6
[2022-05-12] MEDS: cefTRIAXone 1GM/50ML D5W 50 ML IV SCH (09:02)
[2022-05-12 09:03] VITALS: BP 139/72
[2022-05-12] MEDS: ASPirin 81 mg TAB PO SCH (10:52)
[2022-05-12] MEDS: CLOPIDOGREL BISULFATE 75 MG TAB PO SCH (10:52)
[2022-05-12] MEDS ORDERED: CEFD300C2 PO (12:21)
[2022-05-12] MEDS ORDERED: CHL4PW PO (12:21)
[2022-05-12 12:41] VITALS: BP 139/72
[2022-05-12 13:00] VITALS: BP 154/81
== END 2022-05-12 19:30 | disposition home or self-care (01) | DRG 871 ==
LOC: ER 11:18 → EDBD 11:18 → TELE 18:10 → TELE-WESTW 21:50
PROVIDERS: ADMIT Registered Nurse; ATTEND Nurse Practitioner Acute Care
DX: A41.9 Sepsis, unspecified organism (principal); I21.A1 Myocardial infarction type 2; N17.0 Acute kidney failure with tubular necrosis; N39.0 Urinary tract infection, site not specified; E87.1 Hypo-osmolality and hyponatremia; E78.5 Hyperlipidemia, unspecified; I50.9 Heart failure, unspecified; M48.061 Spinal stenosis, lumbar region without neurogenic claudication; I25.10 Atherosclerotic heart disease of native coronary artery without angina pectoris; N20.0 Calculus of kidney; Z20.822 Contact with and (suspected) exposure to COVID-19; E86.0 Dehydration; I11.0 Hypertensive heart disease with heart failure; Z82.0 Family history of epilepsy and other diseases of the nervous system; Z82.49 Family history of ischemic heart disease and other diseases of the circulatory system; Z86.73 Personal history of transient ischemic attack (TIA), and cerebral infarction without residual deficits; Z95.1 Presence of aortocoronary bypass graft; Z95.5 Presence of coronary angioplasty implant and graft; Z88.8 Allergy status to other drugs, medicaments and biological substances
CPT/HCPCS: 36415; 36600; 71045; 74176; 80048; 80053; 80061; 81001; 82570; 82805; 83036; 83735; 83880; 84156; 84300; 84443; 84484; 85025; 85610; 85730; 87040; 87045; 87086; 87426; 87427; 87804; 93005; 96361; 96365; 96375; G0378; J0696; J1885; J2405

== ENCOUNTER → 2022-05-22 | Outpatient (CLI) | payer MEDICARE, MEDICAID ==
[~2022-05-22] MED LIST changes: +ASPI-543 PO; +ATOR20TA50 PO; +BENZ100C97 PO; +CEFD300C2 PO; +CHL4PW PO; +NAPR1TAB93 PO; +SACU1TAB PO
== END | disposition home or self-care (01) ==
LOC: Rad HDHVI 08:45
PROVIDERS: ATTEND Internal Medicine
DX: I08.8 Other rheumatic multiple valve diseases (principal); I11.9 Hypertensive heart disease without heart failure; E78.5 Hyperlipidemia, unspecified
CPT/HCPCS: 93306

== ENCOUNTER 2022-06-04 16:51 | Inpatient (IN) | payer MEDICARE, MEDICAID ==
[~2022-06-04] VITALS: Ht 157.5 cm; Wt 76.2 kg
[2022-06-04] MEDS ORDERED: HYDROmorphone HCL 2 MG/ML VL/or syr IV ONE (17:15)
[2022-06-04 19:14] LABS: Basophils # (auto) 0 10 ^3/uL (0-0.2); Basophils % (auto) 0.6 % (0.0-2.0); Eosinophils # (auto) 0.1 10 ^3/uL (0-0.8); Eosinophils % (auto) 1.1 % (0.0-7.0); Hematocrit 42.9 % (36.0-46.0); Lymphocytes % (auto) 12.7 % (10.0-50.0); Mean Corpuscular Hemoglobin 29.4 pg (28.0-32.0); Mean Corpuscular Hgb Conc. 32.7 g/dL (32.0-36.0); Mean Corpuscular Volume 90.1 fL (80.0-100.0); Monocytes # (auto) 0.5 10 ^3/uL (0-1.3); Monocytes % (auto) 6.2 % (0.0-12.0); Neutrophils # (auto) 6.4 10 ^3/uL (1.6-8.6); Neutrophils % (auto) 79.4 % (37.0-80.0); Nucleated Red Blood Cells % 0.1 %; Red Blood Cells 4.76 10^6/uL (4.0-5.20); Red Cell Distribution Width 15.1 % (11.8-14.3); White Blood Cell 8.1 10^3/uL (4.4-10.8)
[2022-06-04 19:44] LABS: Calcium 8.6 mg/dL (8.5-10.1); Potassium 3.2 mmol/L (3.5-5.1)
[2022-06-04 19:47] LABS: BUN/Creatinine Ratio 11.7; Bilirubin, Total 0.5 mg/dL (0.2-1.0); Total Protein 7.5 g/dL (6.4-8.2)
[2022-06-05] MEDS ORDERED: KETOROLAC TROMETH 30 MG/ML 1ML VIAL IV ONE (02:00)
[2022-06-05] MEDS ORDERED: cefTRIAXone SOD 1,000 MG VL IV ONE (02:30)
[2022-06-05 02:45] LABS: Urine Bacteria NONE SEEN /hpf (None Seen); Urine Blood TRACE /uL (Negative); Urine Specific Gravity 1.018 (1.001-1.035); Urine WBC 7 /hpf (0 - 5)
[2022-06-05] MEDS ORDERED: POTASSIUM CHL 20 Meq TABLET PO ONE (05:15)
[2022-06-05] MEDS ORDERED: MORPHINE SULFATE INJ 2 MG/ml SYRG IV PRN (05:15)
[2022-06-05] MEDS ORDERED: TEMAZEPAM 15 MG CAP PO PRN (05:15)
[2022-06-05] MEDS ORDERED: ONDANSETRON HCL 4 MG/2 ML VIAL IV PRN (05:15)
[2022-06-05] MEDS: HYDROcodone-ACET 5/325MG TAB PO PRN ×2 (05:22→20:25)
[2022-06-05 09:29] VITALS: BP 141/70
[2022-06-05] MEDS ORDERED: SACUBITRIL-VALSARTAN 24mg/26mg TAB PO SCH (10:00)
[2022-06-05] MEDS: CLOPIDOGREL BISULFATE 75 MG TAB PO SCH (11:34)
[2022-06-05] MEDS ORDERED: ASPirin 81 mg TAB PO ONE (11:45)
[2022-06-05] MEDS ORDERED: MANNITOL FTV 25% 12.5 GM/50 ML 50 ML IV ONE (11:45)
[2022-06-05] MEDS: SODIUM CHLORIDE 0.9% 1,000 ML IV SCH ×2 (14:11→22:00)
[2022-06-05 17:00] VITALS: BP 130/56
[2022-06-05] MEDS ORDERED: PNEUMOCOCCAL VACC POLYS 25 MCG/0.5 ML VIAL IM ONE (17:45)
[2022-06-05] MEDS: cefTRIAXone 1GM/50ML D5W 50 ML IV SCH (20:25)
[2022-06-05] MEDS: ATORVASTATIN 20 MG TAB PO SCH (21:40)
[2022-06-05 22:38] VITALS: BP 112/62
[2022-06-06 04:50] LABS: Basophils # (auto) 0.1 10 ^3/uL (0-0.2); Basophils % (auto) 0.9 % (0.0-2.0); Eosinophils # (auto) 0.1 10 ^3/uL (0-0.8); Eosinophils % (auto) 1.7 % (0.0-7.0); Hematocrit 39.3 % (36.0-46.0); Hemoglobin 12.9 g/dL (12.2-16.2); Lymphocytes # (auto) 0.6 10 ^3/uL (0.4-5.4); Lymphocytes % (auto) 9.6 % (10.0-50.0); Mean Corpuscular Hemoglobin 29.6 pg (28.0-32.0); Mean Corpuscular Hgb Conc. 32.9 g/dL (32.0-36.0); Mean Corpuscular Volume 89.9 fL (80.0-100.0); Monocytes # (auto) 0.7 10 ^3/uL (0-1.3); Monocytes % (auto) 9.7 % (0.0-12.0); Neutrophils # (auto) 5.3 10 ^3/uL (1.6-8.6); Neutrophils % (auto) 78.1 % (37.0-80.0); Nucleated Red Blood Cells % 0.1 %; Red Blood Cells 4.38 10^6/uL (4.0-5.20); Red Cell Distribution Width 15.1 % (11.8-14.3); White Blood Cell 6.8 10^3/uL (4.4-10.8)
[2022-06-06 05:04] LABS: INR 1.04 (0.9-1.15); Partial Thromboplastin Time 27.8 sec (24.6-33.4)
[2022-06-06 05:06] LABS: BUN/Creatinine Ratio 12.3; Calcium 8.9 mg/dL (8.5-10.1); Potassium 4.7 mmol/L (3.5-5.1)
[2022-06-06 05:09] VITALS: BP 116/60
[2022-06-06 09:00] VITALS: BP 128/71
[2022-06-06] MEDS: ASPirin 81 mg TAB PO SCH (09:06)
[2022-06-06] MEDS: CLOPIDOGREL BISULFATE 75 MG TAB PO SCH (09:06)
[2022-06-06] MEDS ORDERED: traMADol HCL 50 MG TAB PO PRN (10:45)
[2022-06-06] MEDS ORDERED: MICONAZOLE NITRATE 2 % VAGINAL CREAM 45 GM PV ONE (10:45)
[2022-06-06] MEDS: MICONAZOLE NITRATE 2 % VAGINAL CREAM 45 GM PV SCH ×2 (10:48→20:54)
[2022-06-06] MEDS: ACETAMINOPHEN 325 MG TAB PO PRN ×2 (12:41→18:45)
[2022-06-06 13:00] VITALS: BP 130/57
[2022-06-06] MEDS: SODIUM CHLORIDE 0.9% 1,000 ML IV SCH ×2 (14:25→20:53)
[2022-06-06 17:00] VITALS: BP 137/77
[2022-06-06] MEDS: cefTRIAXone 1GM/50ML D5W 50 ML IV SCH (20:52)
[2022-06-06] MEDS: ATORVASTATIN 20 MG TAB PO SCH (20:52)
[2022-06-06 22:13] VITALS: BP 159/66
[2022-06-07] MEDS: ACETAMINOPHEN 325 MG TAB PO PRN (03:58)
[2022-06-07 05:07] VITALS: BP 151/82
[2022-06-07 07:28] LABS: Potassium 4.4 mmol/L (3.5-5.1)
[2022-06-07 07:33] LABS: BUN/Creatinine Ratio 13.1; Calcium 8.6 mg/dL (8.5-10.1)
[2022-06-07 09:00] VITALS: BP 163/84
[2022-06-07] MEDS: CLOPIDOGREL BISULFATE 75 MG TAB PO SCH (09:17)
[2022-06-07] MEDS: ASPirin 81 mg TAB PO SCH (09:17)
[2022-06-07] MEDS ORDERED: SACUBITRIL-VALSARTAN 24mg/26mg TAB PO SCH (10:00)
[2022-06-07 12:30] VITALS: BP 155/77
[2022-06-07 12:47] VITALS: BP 155/77
== END 2022-06-07 13:50 | disposition home or self-care (01) | DRG 694 ==
LOC: EDBD 16:51 → ER 16:51 → OVERFLOW 06-05 05:02 → EAST 06-05 08:50 → WEST WING 06-05 14:26
PROVIDERS: ADMIT Nurse Practitioner; ATTEND Internal Medicine
DX: N13.2 Hydronephrosis with renal and ureteral calculous obstruction (principal); I50.22 Chronic systolic (congestive) heart failure; N17.0 Acute kidney failure with tubular necrosis; M48.061 Spinal stenosis, lumbar region without neurogenic claudication; Z20.822 Contact with and (suspected) exposure to COVID-19; E66.9 Obesity, unspecified; E87.6 Hypokalemia; I11.0 Hypertensive heart disease with heart failure; I25.10 Atherosclerotic heart disease of native coronary artery without angina pectoris; Z68.30 Body mass index [BMI] 30.0-30.9, adult; Z79.02 Long term (current) use of antithrombotics/antiplatelets; Z82.0 Family history of epilepsy and other diseases of the nervous system; Z86.73 Personal history of transient ischemic attack (TIA), and cerebral infarction without residual deficits; Z87.442 Personal history of urinary calculi; Z95.1 Presence of aortocoronary bypass graft; Z88.8 Allergy status to other drugs, medicaments and biological substances
CPT/HCPCS: 36415; 74018; 74176; 76775; 80048; 80053; 81001; 85025; 85610; 85730; 87081; 87426; 93005; 96374; 96375; G0378; J0696; J1885; J2405

== ENCOUNTER → 2022-10-10 | Outpatient (CLI) | payer MEDICARE, MEDICAID ==
[~2022-10-10] MED LIST changes: -ACET-1158 PO; +ACET500T58 PO; -CIP250T PO; +CIPR250T26 PO
[2022-10-10 10:15] LABS: Basophils # (auto) 0.1 10 ^3/uL (0-0.2); Basophils % (auto) 1.1 % (0.0-2.0); Eosinophils # (auto) 0.1 10 ^3/uL (0-0.8); Hematocrit 43.3 % (36.0-46.0); Lymphocytes % (auto) 13.1 % (10.0-50.0); Mean Corpuscular Hgb Conc. 34.6 g/dL (32.0-36.0); Mean Corpuscular Volume 86.6 fL (80.0-100.0); Monocytes # (auto) 0.7 10 ^3/uL (0-1.3); Monocytes % (auto) 10.2 % (0.0-12.0); Neutrophils # (auto) 5.4 10 ^3/uL (1.6-8.6); Neutrophils % (auto) 73.6 % (37.0-80.0); Nucleated Red Blood Cells % 0.2 %; Red Cell Distribution Width 13.1 % (11.8-14.3); White Blood Cell 7.3 10^3/uL (4.4-10.8)
[2022-10-10 10:57] LABS: Albumin 4.1 g/dL (3.4-5.0); Calcium 9.6 mg/dL (8.5-10.1); Potassium 4.1 mmol/L (3.5-5.1)
[2022-10-10 11:04] LABS: BUN/Creatinine Ratio 20.8 (10.0-20.0); Bilirubin, Direct 0.2 mg/dL (0-0.2); Bilirubin, Total 0.8 mg/dL (0.2-1.0); Total Protein 8.2 g/dL (6.4-8.2)
== END | disposition home or self-care (01) ==
LOC: LAB 09:53
PROVIDERS: ATTEND Internal Medicine Cardiovascular Disease
DX: D51.3 Other dietary vitamin B12 deficiency anemia (principal); D64.9 Anemia, unspecified; E11.9 Type 2 diabetes mellitus without complications; E55.9 Vitamin D deficiency, unspecified; I10 Essential (primary) hypertension; R00.2 Palpitations; R53.1 Weakness; R30.0 Dysuria
CPT/HCPCS: 36415; 80048; 80061; 80076; 83036; 85025

== ENCOUNTER 2022-12-08 04:00 | Inpatient (IN) | payer MEDICARE, MEDICAID ==
[~2022-12-08] VITALS: Ht 162.6 cm; Wt 75.7 kg
[2022-12-08 04:43] VITALS: PULSE 95; RESP 19; O2SAT 93
[2022-12-08 06:00] LABS: Basophils # (auto) 0 10 ^3/uL (0-0.2); Basophils % (auto) 0.2 % (0.0-2.0); Eosinophils # (auto) 0.1 10 ^3/uL (0-0.8); Eosinophils % (auto) 0.5 % (0.0-7.0); Hematocrit 40.2 % (36.0-46.0); Hemoglobin 13.7 g/dL (12.2-16.2); Lymphocytes # (auto) 0.4 10 ^3/uL (0.4-5.4); Lymphocytes % (auto) 2.9 % (10.0-50.0); Mean Corpuscular Volume 88.1 fL (80.0-100.0); Monocytes # (auto) 0.5 10 ^3/uL (0-1.3); Monocytes % (auto) 4.1 % (0.0-12.0); Neutrophils # (auto) 12.4 10 ^3/uL (1.6-8.6); Neutrophils % (auto) 92.3 % (37.0-80.0); Red Blood Cells 4.57 10^6/uL (4.0-5.20); White Blood Cell 13.4 10^3/uL (4.4-10.8)
[2022-12-08 06:13] LABS: Albumin 3.6 g/dL (3.4-5.0); Calcium 8.8 mg/dL (8.5-10.1)
[2022-12-08 06:17] LABS: Total Protein 7.1 g/dL (6.4-8.2)
[2022-12-08 06:31] LABS: Potassium 2.7 mmol/L (3.5-5.1)
[2022-12-08] MEDS ORDERED: metroNIDAZOLE 500MG/100ML 100 ML IV ONE (06:45)
[2022-12-08] MEDS ORDERED: SODIUM CHLORIDE 0.9% 1,000 ML IV ONE (06:45)
[2022-12-08] MEDS ORDERED: POTASSIUM CHL 20 Meq TABLET PO ONE (06:45)
[2022-12-08] MEDS ORDERED: POTASSIUM CHL 20MEQ/100ML 100 ML IV ONE (06:45)
[2022-12-08 08:00] VITALS: PULSE 75; RESP 20; O2SAT 95
[2022-12-08] MEDS ORDERED: ALPRAZolam 0.25 MG TAB PO ONE (09:15)
[2022-12-08] MEDS ORDERED: POTASSIUM EFFERVESENT TAB 25 MEQ PO ONE (09:15)
[2022-12-08 09:41] LABS: Urine Bacteria FEW /hpf (None Seen); Urine Blood Negative /uL (Negative); Urine Clarity Clear (Clear); Urine Color Colorless (Yellow); Urine Protein, UAD Negative (Negative); Urine Specific Gravity 1.005 (1.001-1.035); Urine Urobilinogen Normal (Negative); Urine WBC 40 /hpf (0 - 5); Urine pH 5.5 (5.0-8.0)
[2022-12-08] MEDS ORDERED: NITROGLYCERIN 0.4 MG SL TAB SL PRN (10:15)
[2022-12-08] MEDS ORDERED: MORPHINE SULFATE INJ 2 MG/ml SYRG IV PRN ×2 (10:15)
[2022-12-08] MEDS ORDERED: LORazepam 0.5 MG TAB PO PRN (10:15)
[2022-12-08] MEDS ORDERED: ONDANSETRON HCL 4 MG/2 ML VIAL IV PRN (10:15)
[2022-12-08] MEDS ORDERED: MAALOX PLUS or MAALOX 30 ML PO PRN (10:15)
[2022-12-08] MEDS ORDERED: HYDROcodone-ACET 5/325MG TAB PO PRN (10:15)
[2022-12-08 12:44] LABS: Magnesium 2.6 mg/dL (1.6-2.6)
[2022-12-08 13:12] LABS: Alcohol, Urine < 3.0 mg/dL (0-10); Amphetamine Screen, Urine NEGATIVE (NEGATIVE); Barbiturate Scree,Urine NEGATIVE (NEGATIVE); Benzodiazephine Screen, Urine NEGATIVE (NEGATIVE); Cannabinoid Screen, Urine NEGATIVE (NEGATIVE); Cocaine Screen, Urine NEGATIVE (NEGATIVE); Opiate Scree,Urine NEGATIVE (NEGATIVE); Phencyclidine Screen, Urine NEGATIVE (NEGATIVE)
[2022-12-08] MEDS: metroNIDAZOLE 500MG/100ML 100 ML IV SCH ×2 (14:23→22:11)
[2022-12-08] MEDS: SODIUM CHLOR 0.9% PF (SALINE LOCK) 10ML VIAL/SYR IV SCH ×2 (14:24→21:55)
[2022-12-08] MEDS: CEFTRIAXONE SODIUM 2 GM in D5W 5% 100 ML IV SCH (16:40)
[2022-12-08 19:30] VITALS: PULSE 94; RESP 24; O2SAT 100
[2022-12-08] MEDS: ACETAMINOPHEN 325 MG TAB PO PRN (20:33)
[2022-12-08] MEDS: METOPROLOL TARTRATE 25 MG TAB PO SCH (22:00)
[2022-12-08] MEDS: ATORVASTATIN 20 MG TAB PO SCH (22:11)
[2022-12-08] MEDS: TICAGRELOR 60 MG TAB PO SCH (22:13)
[2022-12-09] VITALS (8 sets, daily range): BP systolic 104–130; BP diastolic 52–65; PULSE 60–84; RESP 17–19; TEMP 99.1–100.1; O2SAT 93–100
[2022-12-09 05:10] LABS: Basophils # (auto) 0.1 10 ^3/uL (0-0.2); Basophils % (auto) 0.5 % (0.0-2.0); Eosinophils # (auto) 0.1 10 ^3/uL (0-0.8); Eosinophils % (auto) 0.5 % (0.0-7.0); Hematocrit 37.2 % (36.0-46.0); Hemoglobin 12.4 g/dL (12.2-16.2); Mean Corpuscular Hemoglobin 30.1 pg (28.0-32.0); Mean Corpuscular Hgb Conc. 33.4 g/dL (32.0-36.0); Mean Corpuscular Volume 90.1 fL (80.0-100.0); Monocytes # (auto) 1.4 10 ^3/uL (0-1.3); Monocytes % (auto) 9.5 % (0.0-12.0); Neutrophils # (auto) 12.4 10 ^3/uL (1.6-8.6); Neutrophils % (auto) 82.5 % (37.0-80.0); Red Blood Cells 4.13 10^6/uL (4.0-5.20); Red Cell Distribution Width 14.6 % (11.8-14.3)
[2022-12-09 05:40] LABS: Albumin 3.1 g/dL (3.4-5.0); Calcium 8.6 mg/dL (8.5-10.1); Magnesium 2.7 mg/dL (1.6-2.6); Potassium 3.5 mmol/L (3.5-5.1)
[2022-12-09 05:44] LABS: BUN/Creatinine Ratio 16.4 (10.0-20.0); Bilirubin, Total 0.7 mg/dL (0.2-1.0); Total Protein 6.6 g/dL (6.4-8.2)
[2022-12-09] MEDS: SODIUM CHLOR 0.9% PF (SALINE LOCK) 10ML VIAL/SYR IV SCH ×3 (06:02→21:41)
[2022-12-09] MEDS: metroNIDAZOLE 500MG/100ML 100 ML IV SCH ×3 (06:20→21:41)
[2022-12-09] MEDS: ASPirin 81 mg TAB PO SCH (08:58)
[2022-12-09] MEDS: METOPROLOL TARTRATE 25 MG TAB PO SCH ×2 (08:58→21:42)
[2022-12-09] MEDS: CEFTRIAXONE SODIUM 2 GM in D5W 5% 100 ML IV SCH (08:58)
[2022-12-09] MEDS: TICAGRELOR 60 MG TAB PO SCH ×2 (08:58→21:42)
[2022-12-09] MEDS ORDERED: ENOXAPARIN SOD 40 MG/0.4 ML SYRINGE SC SCH (10:00)
[2022-12-09] MEDS ORDERED: TICA90TA PO (12:24)
[2022-12-09] MEDS: ACETAMINOPHEN 325 MG TAB PO PRN (16:18)
[2022-12-09] MEDS: ATORVASTATIN 20 MG TAB PO SCH (21:42)
[2022-12-10 05:00] VITALS: BP 121/65; PULSE 77; RESP 17; TEMP 98.4; O2SAT 93
[2022-12-10] MEDS: metroNIDAZOLE 500MG/100ML 100 ML IV SCH ×2 (05:21→14:00)
[2022-12-10] MEDS: SODIUM CHLOR 0.9% PF (SALINE LOCK) 10ML VIAL/SYR IV SCH ×2 (05:22→14:00)
[2022-12-10 06:09] LABS: Basophils # (auto) 0 10 ^3/uL (0-0.2); Basophils % (auto) 0.5 % (0.0-2.0); Eosinophils # (auto) 0.2 10 ^3/uL (0-0.8); Eosinophils % (auto) 1.8 % (0.0-7.0); Hematocrit 41.2 % (36.0-46.0); Hemoglobin 13.8 g/dL (12.2-16.2); Lymphocytes # (auto) 0.8 10 ^3/uL (0.4-5.4); Lymphocytes % (auto) 8.2 % (10.0-50.0); Mean Corpuscular Hemoglobin 30.8 pg (28.0-32.0); Mean Corpuscular Hgb Conc. 33.4 g/dL (32.0-36.0); Mean Corpuscular Volume 92.2 fL (80.0-100.0); Monocytes # (auto) 0.7 10 ^3/uL (0-1.3); Monocytes % (auto) 7.7 % (0.0-12.0); Neutrophils # (auto) 7.9 10 ^3/uL (1.6-8.6); Neutrophils % (auto) 81.8 % (37.0-80.0); Nucleated Red Blood Cells % 0.3 %; Red Blood Cells 4.47 10^6/uL (4.0-5.20); White Blood Cell 9.6 10^3/uL (4.4-10.8)
[2022-12-10 08:00] VITALS: PULSE 77; PULSE 81; RESP 16; O2SAT 94
[2022-12-10 08:30] LABS: Potassium 3.6 mmol/L (3.5-5.1)
[2022-12-10 08:38] LABS: Albumin 3.4 g/dL (3.4-5.0); BUN/Creatinine Ratio 20.3 (10.0-20.0); Bilirubin, Total 0.6 mg/dL (0.2-1.0); Calcium 9.2 mg/dL (8.5-10.1); Magnesium 3.2 mg/dL (1.6-2.6); Total Protein 6.6 g/dL (6.4-8.2)
[2022-12-10 08:43] VITALS: BP 145/65; PULSE 77; RESP 16; TEMP 99.1; O2SAT 94
[2022-12-10] MEDS: CEFTRIAXONE SODIUM 2 GM in D5W 5% 100 ML IV SCH (10:00)
[2022-12-10] MEDS: TICAGRELOR 60 MG TAB PO SCH (10:00)
[2022-12-10] MEDS: METOPROLOL TARTRATE 25 MG TAB PO SCH (10:00)
[2022-12-10] MEDS ORDERED: ENOXAPARIN SOD 30 MG/0.3 ML SYRINGE SC SCH (10:00)
[2022-12-10] MEDS: ASPirin 81 mg TAB PO SCH (12:09)
[2022-12-10 13:00] VITALS: BP 140/76; PULSE 71; RESP 16; TEMP 99.1; O2SAT 97
[2022-12-10] MEDS ORDERED: ASPI-325 PO (13:01)
[2022-12-10] MEDS ORDERED: MET25T PO (13:01)
[2022-12-10] MEDS ORDERED: ATOR20TA50 PO (13:01)
[2022-12-10] MEDS ORDERED: CLOP75TA70 PO (13:01)
[2022-12-10] MEDS ORDERED: CEPH250C PO (13:01)
[2022-12-10] MEDS ORDERED: PANT40TA2 PO (13:15)
[2022-12-10 16:19] VITALS: BP 140/76; PULSE 71; RESP 20; TEMP 98.9; O2SAT 97
[2022-12-10 16:53] VITALS: BP 129/71; PULSE 60; RESP 14; TEMP 99.4; O2SAT 95
== END 2022-12-10 18:45 | disposition home or self-care (01) | DRG 689 ==
LOC: EDBD 04:00 → ER 04:00 → TELE 10:11 → TELE-CENTR 12-09 09:55
PROVIDERS: ADMIT Internal Medicine; ATTEND Internal Medicine
DX: N12 Tubulo-interstitial nephritis, not specified as acute or chronic (principal); I21.A1 Myocardial infarction type 2; I50.22 Chronic systolic (congestive) heart failure; I13.0 Hypertensive heart and chronic kidney disease with heart failure and stage 1 through stage 4 chronic kidney disease, or unspecified chronic kidney disease; E44.1 Mild protein-calorie malnutrition; N39.0 Urinary tract infection, site not specified; E87.6 Hypokalemia; M19.90 Unspecified osteoarthritis, unspecified site; N18.31 Chronic kidney disease, stage 3a; K62.9 Disease of anus and rectum, unspecified; M48.00 Spinal stenosis, site unspecified; I25.10 Atherosclerotic heart disease of native coronary artery without angina pectoris; K52.9 Noninfective gastroenteritis and colitis, unspecified; Z86.73 Personal history of transient ischemic attack (TIA), and cerebral infarction without residual deficits; Z95.1 Presence of aortocoronary bypass graft; Z95.5 Presence of coronary angioplasty implant and graft; Z87.891 Personal history of nicotine dependence; Z68.28 Body mass index [BMI] 28.0-28.9, adult
CPT/HCPCS: 36415; 71045; 74176; 80053; 80061; 80307; 81001; 82270; 82306; 82378; 82607; 83036; 83690; 83735; 83880; 84443; 84484; 85025; 86850; 86900; 86901; 87040; 87086; 93005; 93306; G0378; J0696; J3480; J3490; J7060

== ENCOUNTER → 2023-09-18 | Outpatient (CLI) | payer MEDICARE, MEDICAID ==
[~2023-09-18] MED LIST changes: -ACET500T58 PO; +ASPI-325 PO; -ASPI-543 PO; -BENZ100C97 PO; -CEFD300C2 PO; +CEPH250C PO; -CHL4PW PO; -CIPR250T26 PO; -CLOP75TA70 PO; +MET25T PO; -MET500T PO; -NAPR1TAB93 PO; +PANT40TA2 PO; -SACU1TAB PO
[2023-09-18 10:40] LABS: Basophils # (auto) 0.1 10 ^3/uL (0-0.2); Eosinophils # (auto) 0.2 10 ^3/uL (0-0.8); Eosinophils % (auto) 1.7 % (0.0-7.0); Hematocrit 42.9 % (36.0-46.0); Hemoglobin 14.5 g/dL (12.2-16.2); Lymphocytes # (auto) 1.2 10 ^3/uL (0.4-5.4); Lymphocytes % (auto) 12.8 % (10.0-50.0); Mean Corpuscular Hemoglobin 29.6 pg (28.0-32.0); Mean Corpuscular Hgb Conc. 33.9 g/dL (32.0-36.0); Mean Corpuscular Volume 87.5 fL (80.0-100.0); Monocytes # (auto) 0.6 10 ^3/uL (0-1.3); Monocytes % (auto) 6.3 % (0.0-12.0); Neutrophils # (auto) 7.3 10 ^3/uL (1.6-8.6); Neutrophils % (auto) 78.2 % (37.0-80.0); Nucleated Red Blood Cells % 0.1 %; Red Blood Cells 4.91 10^6/uL (4.0-5.20); Red Cell Distribution Width 14.4 % (11.8-14.3); White Blood Cell 9.3 10^3/uL (4.4-10.8)
[2023-09-18 11:20] LABS: Free T3 2.77 pg/mL (2.3-4.2)
[2023-09-18 11:22] LABS: Alanine Aminotransferase 11 U/L (7-40); Alkaline Phosphatase 111 U/L (46-116); Anion Gap 9 (5-15); BUN/Creatinine Ratio 15.4 (10.0-20.0); Blood Urea Nitrogen 22 mg/dL (9-23); Carbon Dioxide 29 mmol/L (20-30); Chloride 98 mmol/L (98-107); Free T4 (Free Thyroxine) 1.22 ng/dL (0.89-1.76); Glucose 128 mg/dL (74-106); Potassium 2.9 mmol/L (3.5-5.1); Sodium 136 mmol/L (136-145); Triglycerides 77 mg/dL (< 150)
[2023-09-18 11:23] LABS: LDL Cholesterol 155 mg/dL (< 100)
[2023-09-18 11:24] LABS: Albumin 4.8 g/dL (3.2-4.8); Aspartate Aminotransferase 17 U/L (13-40); Bilirubin, Total 0.6 mg/dL (0.2-1.0); Cholesterol 230 mg/dL (< 200); HDL Cholesterol 67 mg/dL (40-59)
[2023-09-18 11:53] LABS: Uric Acid 8.6 mg/dL (3.1-7.8)
== END | disposition home or self-care (01) ==
LOC: LAB 10:20
PROVIDERS: ATTEND Student in an Organized Health Care Education/Training Program
DX: I25.5 Ischemic cardiomyopathy (principal); I12.9 Hypertensive chronic kidney disease with stage 1 through stage 4 chronic kidney disease, or unspecified chronic kidney disease; N18.9 Chronic kidney disease, unspecified; I50.22 Chronic systolic (congestive) heart failure
CPT/HCPCS: 36415; 80053; 80061; 83880; 84439; 84443; 84481; 84550; 85025

== ENCOUNTER 2023-10-01 22:10 | Inpatient (IN) | payer OTHER, MEDICAID ==
[~2023-10-01] VITALS: Ht 157.5 cm; Wt 72.9 kg
[2023-10-02] VITALS (10 sets, daily range): BP systolic 85–136; BP diastolic 32–62; PULSE 63–80; RESP 16–19; TEMP 97.5–98.5; O2SAT 95–100
[2023-10-02] MEDS ORDERED: MULT-1018 PO (02:08)
[2023-10-02] MEDS ORDERED: ONDANSETRON HCL 4 MG/2 ML VIAL IV PRN (02:45)
[2023-10-02] MEDS ORDERED: NITROGLYCERIN 0.4 MG SL TAB SL PRN (02:45)
[2023-10-02] MEDS ORDERED: MORPHINE SULFATE INJ 2 MG/ml SYRG IV PRN (02:45)
[2023-10-02 03:13] LABS: Basophils # (auto) 0 10 ^3/uL (0-0.2); Basophils % (auto) 0.4 % (0.0-2.0); Eosinophils # (auto) 0.1 10 ^3/uL (0-0.8); Eosinophils % (auto) 0.8 % (0.0-7.0); Hematocrit 41.9 % (36.0-46.0); Hemoglobin 14.1 g/dL (12.2-16.2); Lymphocytes # (auto) 0.8 10 ^3/uL (0.4-5.4); Mean Corpuscular Hemoglobin 29.7 pg (28.0-32.0); Mean Corpuscular Hgb Conc. 33.8 g/dL (32.0-36.0); Monocytes % (auto) 10.7 % (0.0-12.0); Neutrophils # (auto) 7.2 10 ^3/uL (1.6-8.6); Neutrophils % (auto) 79.1 % (37.0-80.0); Nucleated Red Blood Cells % 0.1 %; Red Blood Cells 4.76 10^6/uL (4.0-5.20); Red Cell Distribution Width 13.9 % (11.8-14.3); White Blood Cell 9.1 10^3/uL (4.4-10.8)
[2023-10-02 03:36] LABS: Alanine Aminotransferase 10 U/L (7-40); Albumin 4.1 g/dL (3.2-4.8); Alkaline Phosphatase 86 U/L (46-116); Anion Gap 9 (5-15); Aspartate Aminotransferase 13 U/L (13-40); BUN/Creatinine Ratio 18.8 (10.0-20.0); Blood Urea Nitrogen 24 mg/dL (9-23); Calcium 9.3 mg/dL (8.7-10.4); Carbon Dioxide 26 mmol/L (20-30); Chloride 98 mmol/L (98-107); Glucose 103 mg/dL (74-106); Potassium 2.9 mmol/L (3.5-5.1); Sodium 133 mmol/L (136-145)
[2023-10-02 03:37] LABS: Bilirubin, Total 0.6 mg/dL (0.2-1.0)
[2023-10-02] MEDS: POTASSIUM CHL 20 Meq TABLET PO ONE (04:18)
[2023-10-02] MEDS: ASPirin 81 mg TAB PO SCH (09:37)
[2023-10-02] MEDS: METOPROLOL TARTRATE 25 MG TAB PO SCH (09:40)
[2023-10-02 11:20] LABS: Chloride 98 mmol/L (98-107); Potassium 3.9 mmol/L (3.5-5.1); Sodium 131 mmol/L (136-145)
[2023-10-02 11:21] LABS: Anion Gap 5 (5-15); Carbon Dioxide 28 mmol/L (20-30)
[2023-10-02 11:22] LABS: Calcium 8.8 mg/dL (8.5-10.1)
[2023-10-02 11:26] LABS: Glucose 128 mg/dL (74-106)
[2023-10-02 11:27] LABS: BUN/Creatinine Ratio 23.9 (10.0-20.0); Blood Urea Nitrogen 26 mg/dL (9-23); Magnesium 2.6 mg/dL (1.6-2.6)
[2023-10-02] MEDS ORDERED: ATORVASTATIN 20 MG TAB PO SCH (22:00)
[2023-10-02] MEDS: ATORVASTATIN 20 MG TAB PO SCH (22:07)
[2023-10-02] MEDS: diphenhdrAMINE HCL 25 MG CAP PO ONE (22:08)
[2023-10-03] VITALS (8 sets, daily range): BP systolic 100–139; BP diastolic 40–60; PULSE 62–76; RESP 17–20; TEMP 97.4–98.3; O2SAT 95–97
[2023-10-03] MEDS: ACETAMINOPHEN 325 MG TAB PO PRN (05:16)
[2023-10-03 07:22] LABS: Basophils # (auto) 0.1 10 ^3/uL (0-0.2); Basophils % (auto) 0.6 % (0.0-2.0); Eosinophils # (auto) 0.3 10 ^3/uL (0-0.8); Eosinophils % (auto) 3.7 % (0.0-7.0); Hematocrit 40.6 % (36.0-46.0); Hemoglobin 13.9 g/dL (12.2-16.2); Lymphocytes # (auto) 1.3 10 ^3/uL (0.4-5.4); Lymphocytes % (auto) 14.7 % (10.0-50.0); Mean Corpuscular Hemoglobin 30.2 pg (28.0-32.0); Mean Corpuscular Hgb Conc. 34.2 g/dL (32.0-36.0); Mean Corpuscular Volume 88.3 fL (80.0-100.0); Monocytes # (auto) 0.7 10 ^3/uL (0-1.3); Monocytes % (auto) 7.8 % (0.0-12.0); Neutrophils # (auto) 6.4 10 ^3/uL (1.6-8.6); Neutrophils % (auto) 73.2 % (37.0-80.0); Red Blood Cells 4.59 10^6/uL (4.0-5.20); Red Cell Distribution Width 13.9 % (11.8-14.3); White Blood Cell 8.7 10^3/uL (4.4-10.8)
[2023-10-03 07:44] LABS: Anion Gap 8 (5-15); Calcium 9.7 mg/dL (8.7-10.4); Carbon Dioxide 26 mmol/L (20-30); Chloride 97 mmol/L (98-107); Potassium 3.5 mmol/L (3.5-5.1); Sodium 131 mmol/L (136-145)
[2023-10-03 07:50] LABS: BUN/Creatinine Ratio 13.7 (10.0-20.0); Blood Urea Nitrogen 18 mg/dL (9-23); Glucose 117 mg/dL (74-106)
[2023-10-03 07:51] LABS: Magnesium 2.5 mg/dL (1.6-2.6)
[2023-10-03] MEDS: ASPirin 81 mg TAB PO SCH (09:04)
[2023-10-03] MEDS: SODIUM CHLORIDE 0.9% 500 ML IV ONE (09:18)
[2023-10-03] MEDS: MIDODRINE HCL 10 MG TAB PO ONE (10:00)
[2023-10-03] MEDS ORDERED: hydrALAZINE HCL 25 MG TAB PO SCH (10:00)
[2023-10-03 11:07] LABS: Urine Bacteria FEW /hpf (None Seen); Urine Blood Negative /uL (Negative); Urine Clarity Clear (Clear); Urine Color Light-Yellow (Yellow); Urine Protein, UAD TRACE (Negative); Urine Specific Gravity 1.015 (1.001-1.035); Urine Urobilinogen Normal (Negative); Urine WBC 95 /hpf (0 - 5); Urine pH 6.5 (5.0-9.0)
[2023-10-03] MEDS: cefTRIAXone 1GM/50ML D5W 50 ML IV ONE (15:25)
[2023-10-03] MEDS ORDERED: ISOS1TAB28 PO (16:54)
[2023-10-03] MEDS ORDERED: ROSU20TA14 PO (16:54)
[2023-10-03] MEDS: metroNIDAZOLE 500 MG TAB PO SCH (17:42)
[2023-10-03] MEDS: MIDODRINE HCL 10 MG TAB PO SCH (18:00)
[2023-10-03] MEDS: FLORASTOR (S. BOULARDII) 250 MG CAP PO SCH (21:02)
[2023-10-03] MEDS: diphenhdrAMINE HCL 25 MG CAP PO ONE (22:45)
[2023-10-04] VITALS (8 sets, daily range): BP systolic 0–145; BP diastolic 41–71; PULSE 16–77; RESP 17; TEMP 97.4–98; O2SAT 90–98
[2023-10-04 07:33] LABS: Chloride 99 mmol/L (98-107); Sodium 133 mmol/L (136-145)
[2023-10-04 07:34] LABS: Anion Gap 3 (5-15); Calcium 9.5 mg/dL (8.5-10.1); Carbon Dioxide 31 mmol/L (20-30)
[2023-10-04 07:39] LABS: Glucose 98 mg/dL (74-106); Magnesium 2.4 mg/dL (1.6-2.6)
[2023-10-04 07:41] LABS: Phosphorus 3.2 mg/dL (2.4-5.1)
[2023-10-04 08:48] LABS: BUN/Creatinine Ratio 11.8 (10.0-20.0); Blood Urea Nitrogen 13 mg/dL (9-23); Potassium 3.8 mmol/L (3.5-5.1)
[2023-10-04] MEDS ORDERED: SACC250C PO (09:01)
[2023-10-04] MEDS ORDERED: CEPH250C PO (09:01)
[2023-10-04] MEDS ORDERED: MID10T PO (09:01)
[2023-10-04] MEDS: cefTRIAXone 1GM/50ML D5W 50 ML IV SCH (09:18)
== END 2023-10-04 15:46 | disposition home or self-care (01) | DRG 281 ==
LOC: UNDOADMIN 10-02 00:46 → TELE 10-02 00:46 → TELE-CENTR 10-02 00:47
PROVIDERS: ADMIT Nurse Practitioner; ATTEND Internal Medicine
DX: I95.1 Orthostatic hypotension (principal); I13.0 Hypertensive heart and chronic kidney disease with heart failure and stage 1 through stage 4 chronic kidney disease, or unspecified chronic kidney disease; I21.A1 Myocardial infarction type 2; I50.22 Chronic systolic (congestive) heart failure; E78.5 Hyperlipidemia, unspecified; I25.10 Atherosclerotic heart disease of native coronary artery without angina pectoris; I44.7 Left bundle-branch block, unspecified; R73.03 Prediabetes; E66.9 Obesity, unspecified; N18.9 Chronic kidney disease, unspecified; Z98.61 Coronary angioplasty status; Z82.49 Family history of ischemic heart disease and other diseases of the circulatory system; Z95.1 Presence of aortocoronary bypass graft; Z88.3 Allergy status to other anti-infective agents; Z82.0 Family history of epilepsy and other diseases of the nervous system; Z79.82 Long term (current) use of aspirin; Z79.899 Other long term (current) drug therapy; Z68.29 Body mass index [BMI] 29.0-29.9, adult; Z85.048 Personal history of other malignant neoplasm of rectum, rectosigmoid junction, and anus
CPT/HCPCS: 36415; 80048; 80053; 81001; 82533; 82607; 83036; 83735; 83880; 84100; 84484; 85025; 87081; 87086; 93306; 93886; 97110; 97116; 97163; 97530; G0378

== ENCOUNTER 2023-10-12 12:12 | Inpatient (IN) | payer OTHER, MEDICAID ==
[~2023-10-12] VITALS: Ht 157.5 cm; Wt 70.9 kg
[~2023-10-12 12:12] MED LIST changes: -MET25T PO; +MULT-1018 PO; +ROSU20TA14 PO; +SACC250C PO
[2023-10-12 13:00] VITALS: PULSE 81; RESP 24; O2SAT 96
[2023-10-12] MEDS: SODIUM CHLORIDE 0.9% 500 ML IV ONE (13:50)
[2023-10-12 14:25] LABS: Basophils # (auto) 0 10 ^3/uL (0-0.2); Basophils % (auto) 0.2 % (0.0-2.0); Eosinophils # (auto) 0 10 ^3/uL (0-0.8); Hematocrit 44.2 % (36.0-46.0); Hemoglobin 15.6 g/dL (12.2-16.2); Lymphocytes # (auto) 0.7 10 ^3/uL (0.4-5.4); Mean Corpuscular Hgb Conc. 35.3 g/dL (32.0-36.0); Mean Corpuscular Volume 84.8 fL (80.0-100.0); Neutrophils # (auto) 9.8 10 ^3/uL (1.6-8.6); Neutrophils % (auto) 84.8 % (37.0-80.0); Nucleated Red Blood Cells % 0.1 %; Red Blood Cells 5.21 10^6/uL (4.0-5.20); Red Cell Distribution Width 13.7 % (11.8-14.3); White Blood Cell 11.6 10^3/uL (4.4-10.8)
[2023-10-12 14:29] LABS: Anion Gap 8 (5-15); Carbon Dioxide 34 mmol/L (20-30); Chloride 75 mmol/L (98-107); Potassium 2.9 mmol/L (3.5-5.1)
[2023-10-12 14:30] LABS: Calcium 10.4 mg/dL (8.7-10.4)
[2023-10-12 14:35] LABS: BUN/Creatinine Ratio 16.1 (10.0-20.0); Blood Urea Nitrogen 28 mg/dL (9-23); Glucose 123 mg/dL (74-106); Magnesium 2.8 mg/dL (1.6-2.6)
[2023-10-12 15:22] LABS: Sodium 117 mmol/L (136-145)
[2023-10-12] MEDS ORDERED: ALBUTEROL SULF 2.5 MG/0.5ML(0.5%) NEB SOLN NEB PRN (15:45)
[2023-10-12] MEDS ORDERED: ACETAMINOPHEN 500 MG TAB PO PRN (15:45)
[2023-10-12] MEDS ORDERED: IPRATROPIUM BROM 0.5 MG/2.5ML INH SOL NEB PRN (15:45)
[2023-10-12] MEDS ORDERED: MORPHINE SULFATE INJ 2 MG/ml SYRG IV PRN ×2 (15:45)
[2023-10-12] MEDS ORDERED: NITROGLYCERIN 0.4 MG SL TAB SL PRN (15:45)
[2023-10-12] MEDS: OMNIPAQUE 12mg/ml 500ml ORAL SOLUTION PO ONE (16:09)
[2023-10-12 16:16] VITALS: BP 121/66; PULSE 71; RESP 21; TEMP 97.3; O2SAT 94
[2023-10-12] MEDS: POTASSIUM EFFERVESENT TAB 25 MEQ PO ONE (17:03)
[2023-10-12] MEDS: PANTOPRAZOLE 40 MG TAB PO ONE (17:03)
[2023-10-12 17:48] LABS: Calcium 9.9 mg/dL (8.5-10.1); Carbon Dioxide 30 mmol/L (20-30)
[2023-10-12 17:53] LABS: BUN/Creatinine Ratio 14.6 (10.0-20.0); Blood Urea Nitrogen 23 mg/dL (9-23); Glucose 95 mg/dL (74-106)
[2023-10-12 18:18] LABS: Anion Gap 10 (5-15); Chloride 79 mmol/L (98-107); Potassium 3.1 mmol/L (3.5-5.1)
[2023-10-12 18:36] VITALS: O2SAT 96
[2023-10-12] MEDS: SODIUM CHL 3% 500 ML IV ONE (18:37)
[2023-10-12 19:31] LABS: Sodium 119 mmol/L (136-145)
[2023-10-12 20:00] VITALS: PULSE 72; RESP 18; O2SAT 94
[2023-10-12 20:52] LABS: Chloride 78 mmol/L (98-107); Potassium 2.9 mmol/L (3.5-5.1)
[2023-10-12 20:53] LABS: Anion Gap 9 (5-15); Carbon Dioxide 32 mmol/L (20-30)
[2023-10-12 20:58] LABS: BUN/Creatinine Ratio 20.7 (10.0-20.0); Blood Urea Nitrogen 30 mg/dL (9-23); Glucose 88 mg/dL (74-106)
[2023-10-12 21:16] LABS: Sodium 119 mmol/L (136-145)
[2023-10-12] MEDS ORDERED: CEFEPIME 1GM/ 50ML 50 ML IV SCH (22:00)
[2023-10-13] VITALS (7 sets, daily range): BP systolic 118–130; BP diastolic 55–64; PULSE 72–77; RESP 14–18; TEMP 97.4–97.5; O2SAT 94–100
[2023-10-13] MEDS: HYDROcodone-ACET 5/325MG TAB PO PRN (04:09)
[2023-10-13] MEDS: POTASSIUM CHL 20MEQ/100ML 100 ML IV ONE (04:55)
[2023-10-13] MEDS ORDERED: SODIUM CHLORIDE 0.9% 1,000 ML IV SCH (07:30)
[2023-10-13 08:34] LABS: Basophils # (auto) 0 10 ^3/uL (0-0.2); Basophils % (auto) 0.3 % (0.0-2.0); Eosinophils # (auto) 0.1 10 ^3/uL (0-0.8); Eosinophils % (auto) 0.9 % (0.0-7.0); Hematocrit 40.1 % (36.0-46.0); Lymphocytes # (auto) 0.9 10 ^3/uL (0.4-5.4); Lymphocytes % (auto) 13.2 % (10.0-50.0); Mean Corpuscular Hemoglobin 30.1 pg (28.0-32.0); Mean Corpuscular Hgb Conc. 34.8 g/dL (32.0-36.0); Mean Corpuscular Volume 86.5 fL (80.0-100.0); Monocytes # (auto) 0.7 10 ^3/uL (0-1.3); Monocytes % (auto) 10.5 % (0.0-12.0); Neutrophils # (auto) 5.1 10 ^3/uL (1.6-8.6); Neutrophils % (auto) 75.1 % (37.0-80.0); Red Blood Cells 4.64 10^6/uL (4.0-5.20); Red Cell Distribution Width 13.6 % (11.8-14.3); White Blood Cell 6.8 10^3/uL (4.4-10.8)
[2023-10-13 08:51] LABS: Alanine Aminotransferase 15 U/L (7-40); Albumin 4.2 g/dL (3.2-4.8); Alkaline Phosphatase 84 U/L (46-116); Anion Gap 4 (5-15); Aspartate Aminotransferase 22 U/L (13-40); BUN/Creatinine Ratio 21.5 (10.0-20.0); Bilirubin, Total 0.7 mg/dL (0.2-1.0); Blood Urea Nitrogen 28 mg/dL (9-23); Calcium 9.3 mg/dL (8.5-10.1); Carbon Dioxide 33 mmol/L (20-30); Glucose 87 mg/dL (74-106); Potassium 3.7 mmol/L (3.5-5.1); Total Protein 6.6 g/dL (5.7-8.2)
[2023-10-13 09:02] LABS: Chloride 92 mmol/L (98-107); Sodium 129 mmol/L (136-145)
[2023-10-13] MEDS: CEFEPIME 1GM/ 50ML 50 ML IV SCH (10:42)
[2023-10-13 11:16] LABS: Magnesium 2.7 mg/dL (1.6-2.6)
[2023-10-13 11:17] LABS: Phosphorus 3.4 mg/dL (2.4-5.1)
[2023-10-13 12:16] LABS: Chloride 93 mmol/L (98-107); Sodium 127 mmol/L (136-145)
[2023-10-13 12:17] LABS: Anion Gap 6 (5-15); Calcium 9.8 mg/dL (8.5-10.1); Carbon Dioxide 28 mmol/L (20-30)
[2023-10-13 12:22] LABS: Glucose 143 mg/dL (74-106)
[2023-10-13 12:23] LABS: BUN/Creatinine Ratio 12.3 (10.0-20.0)
[2023-10-13 12:30] LABS: Blood Urea Nitrogen 17 mg/dL (9-23); Potassium 3.9 mmol/L (3.5-5.1)
[2023-10-13] MEDS: D5W 5% 1,000 ML IV SCH (13:57)
[2023-10-13 14:29] LABS: Urine Bacteria MANY /hpf (None Seen); Urine Blood TRACE /uL (Negative); Urine Protein, UAD Negative (Negative); Urine Specific Gravity 1.008 (1.001-1.035); Urine Urobilinogen Normal (Negative); Urine WBC 4 /hpf (0 - 5); Urine pH 5.5 (5.0-9.0)
[2023-10-13 14:30] LABS: Urine Clarity Cloudy (Clear); Urine Color Yellow (Yellow)
[2023-10-13 14:33] LABS: Protein, Urine 10.7 mg/dL (0.0-11.9)
[2023-10-13 14:35] LABS: Creatinine, Urine 43.03 mg/dL (30.0-125.0); Urine Protein/Creatinine Ratio 0.25
[2023-10-13 18:23] LABS: Chloride 93 mmol/L (98-107); Potassium 3.4 mmol/L (3.5-5.1); Sodium 128 mmol/L (136-145)
[2023-10-13 18:24] LABS: Anion Gap 6 (5-15); Carbon Dioxide 29 mmol/L (20-30)
[2023-10-13 18:25] LABS: Calcium 9.3 mg/dL (8.5-10.1)
[2023-10-13 18:29] LABS: BUN/Creatinine Ratio 15.7 (10.0-20.0); Blood Urea Nitrogen 21 mg/dL (9-23); Glucose 122 mg/dL (74-106)
[2023-10-13] MEDS ORDERED: MID10T PO (19:00)
[2023-10-13] MEDS: BISACODYL 5 MG EC TAB PO ONE ×2 (20:33)
[2023-10-13] MEDS: GOLYTELY 4L KIT PO ONE (20:33)
[2023-10-13] MEDS: ATORVASTATIN 20 MG TAB PO SCH (20:35)
[2023-10-13 22:00] LABS: Chloride 93 mmol/L (98-107); Potassium 3.6 mmol/L (3.5-5.1); Sodium 127 mmol/L (136-145)
[2023-10-13 22:01] LABS: Anion Gap 6 (5-15); Calcium 9.1 mg/dL (8.5-10.1); Carbon Dioxide 28 mmol/L (20-30)
[2023-10-13 22:06] LABS: BUN/Creatinine Ratio 13.7 (10.0-20.0); Blood Urea Nitrogen 18 mg/dL (9-23); Glucose 140 mg/dL (74-106)
[2023-10-13 23:47] LABS: INR 1.08 (0.9-1.15); Prothrombin Time 11.4 sec (9.3-11.8)
[2023-10-14] VITALS (10 sets, daily range): BP systolic 104–133; BP diastolic 42–67; PULSE 58–95; RESP 14–22; TEMP 97.5–98.4; O2SAT 94–97
[2023-10-14 03:13] LABS: Urine Bacteria FEW /hpf (None Seen); Urine Blood TRACE /uL (Negative); Urine Clarity Clear (Clear); Urine Color Colorless (Yellow); Urine Protein, UAD Negative (Negative); Urine Specific Gravity 1.005 (1.001-1.035); Urine Urobilinogen Normal (Negative); Urine WBC 25 /hpf (0 - 5); Urine pH 5.5 (5.0-9.0)
[2023-10-14] MEDS: GOLYTELY 4L KIT PO ONE (05:05)
[2023-10-14] MEDS: ONDANSETRON HCL 4 MG/2 ML VIAL IV PRN (05:34)
[2023-10-14 09:03] LABS: Anion Gap 3 (5-15); Carbon Dioxide 34 mmol/L (20-30); Chloride 95 mmol/L (98-107); Potassium 2.9 mmol/L (3.5-5.1)
[2023-10-14 09:04] LABS: Calcium 9.2 mg/dL (8.5-10.1)
[2023-10-14 09:08] LABS: Sodium 132 mmol/L (136-145)
[2023-10-14 09:09] LABS: BUN/Creatinine Ratio 13.2 (10.0-20.0); Blood Urea Nitrogen 14 mg/dL (9-23); Glucose 132 mg/dL (74-106)
[2023-10-14] MEDS: ASPirin 81 mg TAB PO SCH (10:00)
[2023-10-14] MEDS: POTASSIUM EFFERVESENT TAB 25 MEQ PO ONE (11:15)
[2023-10-14] MEDS ORDERED: KETAMINE 50mg/ML 1ml syringe ONE (14:20)
[2023-10-14] MEDS ORDERED: MIDAZOLAM HCL 2MG/2ML 2ml VIAL (1mg/ml) ONE (14:20)
[2023-10-14] MEDS ORDERED: PROPOFOL 10 MG/ML 20 ML IV ONE (14:21)
[2023-10-14] MEDS ORDERED: GLYCOPYRROLATE 0.2 MG/ML 1ML VIAL ONE (14:21)
[2023-10-14] MEDS ORDERED: ONDANSETRON HCL 4 MG/2 ML VIAL ONE (14:21)
[2023-10-14] MEDS: ONDANSETRON HCL 4 MG/2 ML VIAL IV ONE (15:15)
[2023-10-14] MEDS: POTASSIUM CHLORIDE 40 MEQ in D5W 5% 1,000 ML IV SCH (18:32)
[2023-10-15] VITALS (11 sets, daily range): BP systolic 113–134; BP diastolic 54–80; PULSE 64–77; RESP 16–20; TEMP 97.9–98.5; O2SAT 92–100
[2023-10-15 11:50] LABS: Chloride 93 mmol/L (98-107); Potassium 3.3 mmol/L (3.5-5.1); Sodium 130 mmol/L (136-145)
[2023-10-15 11:51] LABS: Anion Gap 3 (5-15); Calcium 9.4 mg/dL (8.5-10.1); Carbon Dioxide 34 mmol/L (20-30)
[2023-10-15 11:56] LABS: BUN/Creatinine Ratio 9.8 (10.0-20.0); Blood Urea Nitrogen 11 mg/dL (9-23); Glucose 135 mg/dL (74-106)
[2023-10-15] MEDS ORDERED: ISOS1TAB28 PO (17:38)
[2023-10-15] MEDS ORDERED: MET25T PO (17:38)
[2023-10-15] MEDS ORDERED: POTA20IN4 PO (17:40)
[2023-10-15] MEDS: POTASSIUM CHL 20 Meq TABLET PO ONE (17:46)
[2023-10-16] VITALS (10 sets, daily range): BP systolic 128–159; BP diastolic 47–73; PULSE 70–87; RESP 17–20; TEMP 97.4–98.5; O2SAT 93–99
[2023-10-16 06:38] LABS: Calcium 9.5 mg/dL (8.5-10.1); Chloride 98 mmol/L (98-107); Potassium 4.2 mmol/L (3.5-5.1); Sodium 133 mmol/L (136-145)
[2023-10-16 06:39] LABS: Anion Gap 3 (5-15); Carbon Dioxide 32 mmol/L (20-30)
[2023-10-16 06:44] LABS: BUN/Creatinine Ratio 11.2 (10.0-20.0); Blood Urea Nitrogen 11 mg/dL (9-23); Glucose 110 mg/dL (74-106)
[2023-10-16] MEDS: BACITRACIN-POLYMYXIN B OPTH(EYE) OINT 3.5GM OP SCH (13:41)
[2023-10-16] MEDS: ARTIFICIAL TEARS 15ml EACHEYE PRN (13:42)
[2023-10-16] MEDS: METOPROLOL SUCCINATE XL 50 MG TAB PO ONE (17:18)
[2023-10-17] VITALS (10 sets, daily range): BP systolic 103–155; BP diastolic 53–69; PULSE 61–76; RESP 16–20; TEMP 97.6–98.5; O2SAT 92–97
[2023-10-17 06:44] LABS: Calcium 9.8 mg/dL (8.7-10.4); Chloride 100 mmol/L (98-107); Potassium 3.9 mmol/L (3.5-5.1); Sodium 133 mmol/L (136-145)
[2023-10-17 06:45] LABS: Anion Gap 3 (5-15); Carbon Dioxide 30 mmol/L (20-30)
[2023-10-17 06:50] LABS: BUN/Creatinine Ratio 15.9 (10.0-20.0); Blood Urea Nitrogen 17 mg/dL (9-23); Glucose 106 mg/dL (74-106)
[2023-10-17] MEDS: METOPROLOL SUCCINATE XL 50 MG TAB PO SCH (10:28)
[2023-10-18] VITALS (9 sets, daily range): BP systolic 111–136; BP diastolic 46–73; PULSE 63–80; RESP 16–18; TEMP 97.2–98.3; O2SAT 90–98
[2023-10-18] MEDS: GADOTERATE MEG 10 MMOL/20ml INJ (0.5MMOL/ml) IV ONE (07:15)
[2023-10-18 16:08] LABS: Anion Gap 6 (5-15); Carbon Dioxide 28 mmol/L (20-30); Chloride 98 mmol/L (98-107); Potassium 3.3 mmol/L (3.5-5.1); Sodium 132 mmol/L (136-145)
[2023-10-18 16:10] LABS: Calcium 9.5 mg/dL (8.5-10.1)
[2023-10-18 16:14] LABS: Glucose 134 mg/dL (74-106)
[2023-10-18 16:15] LABS: BUN/Creatinine Ratio 18.8 (10.0-20.0); Blood Urea Nitrogen 24 mg/dL (9-23)
[2023-10-19] VITALS (10 sets, daily range): BP systolic 111–127; BP diastolic 47–60; PULSE 61–78; RESP 16–18; TEMP 97.6–98.3; O2SAT 90–98
[2023-10-19 06:37] LABS: Anion Gap 4 (5-15); Carbon Dioxide 29 mmol/L (20-30); Chloride 99 mmol/L (98-107); Potassium 3.5 mmol/L (3.5-5.1); Sodium 132 mmol/L (136-145)
[2023-10-19 06:43] LABS: BUN/Creatinine Ratio 22.1 (10.0-20.0); Blood Urea Nitrogen 25 mg/dL (9-23); Glucose 119 mg/dL (74-106)
[2023-10-19] MEDS: CEFEPIME 1GM/ 50ML 50 ML IV SCH (23:27)
[2023-10-20] VITALS (7 sets, daily range): BP systolic 106–121; BP diastolic 53–60; PULSE 70–78; RESP 18–20; TEMP 97.7–98.1; O2SAT 92–98
[2023-10-20 07:32] LABS: Anion Gap 5 (5-15); Carbon Dioxide 29 mmol/L (20-30); Chloride 99 mmol/L (98-107); Potassium 3.8 mmol/L (3.5-5.1); Sodium 133 mmol/L (136-145)
[2023-10-20 07:34] LABS: Calcium 9.8 mg/dL (8.5-10.1)
[2023-10-20 07:39] LABS: BUN/Creatinine Ratio 17.3 (10.0-20.0); Blood Urea Nitrogen 22 mg/dL (9-23); Glucose 94 mg/dL (74-106)
[2023-10-21] VITALS (8 sets, daily range): BP systolic 106–121; BP diastolic 54–64; PULSE 69–76; RESP 16–20; TEMP 97.5–98.6; O2SAT 93–97
[2023-10-21] MEDS: SODIUM CHLORIDE 0.9% 250 ML IV ONE (15:02)
[2023-10-21 15:34] LABS: Chloride 99 mmol/L (98-107); Potassium 3.4 mmol/L (3.5-5.1); Sodium 132 mmol/L (136-145)
[2023-10-21 15:35] LABS: Anion Gap 8 (5-15); Calcium 9.6 mg/dL (8.7-10.4); Carbon Dioxide 25 mmol/L (20-30)
[2023-10-21 15:40] LABS: BUN/Creatinine Ratio 18.9 (10.0-20.0); Blood Urea Nitrogen 25 mg/dL (9-23); Glucose 111 mg/dL (74-106)
[2023-10-22] VITALS (10 sets, daily range): BP systolic 99–132; BP diastolic 53–71; PULSE 63–76; RESP 16–20; TEMP 97.3–98.3; O2SAT 92–99
[2023-10-22 06:34] LABS: Anion Gap 7 (5-15); Carbon Dioxide 26 mmol/L (20-30); Chloride 97 mmol/L (98-107); Potassium 3.7 mmol/L (3.5-5.1); Sodium 130 mmol/L (136-145)
[2023-10-22 06:35] LABS: Calcium 9.6 mg/dL (8.7-10.4)
[2023-10-22 06:40] LABS: BUN/Creatinine Ratio 19.3 (10.0-20.0); Blood Urea Nitrogen 23 mg/dL (9-23); Glucose 107 mg/dL (74-106)
[2023-10-22] MEDS: SOD CHL 0.9%/ KCL 20MEQ 1,000 ML IV SCH (13:32)
[2023-10-22] MEDS: FLORASTOR (S. BOULARDII) 250 MG CAP PO SCH (13:32)
[2023-10-22] MEDS: DIPHENOXYLATE W/ATROPINE 2.5 MG TAB PO PRN (21:49)
[2023-10-22] MEDS: BACITRACIN-POLYMYXIN B OPTH(EYE) OINT 3.5GM OP SCH (21:51)
[2023-10-23] VITALS (8 sets, daily range): BP systolic 99–123; BP diastolic 55–70; PULSE 61–79; RESP 16–19; TEMP 97.8–98.4; O2SAT 91–97
[2023-10-23] MEDS: SOD CHL 0.9%/ KCL 40MEQ 1,000 ML IV SCH (12:15)
[2023-10-23] MEDS: FUROSEMIDE 20 MG/2 ML VIAL IV ONE (14:22)
[2023-10-23] MEDS ORDERED: DIPHENOXYLATE W/ATROPINE 2.5 MG TAB PO PRN (17:30)
[2023-10-23] MEDS: CHOLESTYRAMINE 4 GM POWDER PO ONE (20:11)
[2023-10-24 01:00] VITALS: BP 110/68; PULSE 62; RESP 19; TEMP 97.6; O2SAT 94
[2023-10-24 05:00] VITALS: BP 98/48; PULSE 65; RESP 19; TEMP 97.5; O2SAT 92
[2023-10-24 06:35] LABS: Anion Gap 8 (5-15); Carbon Dioxide 30 mmol/L (20-30); Chloride 94 mmol/L (98-107); Potassium 3.1 mmol/L (3.5-5.1); Sodium 132 mmol/L (136-145)
[2023-10-24 06:41] LABS: BUN/Creatinine Ratio 25.9 (10.0-20.0); Blood Urea Nitrogen 36 mg/dL (9-23); Calcium 9.9 mg/dL (8.5-10.1); Glucose 111 mg/dL (74-106)
[2023-10-24 08:00] VITALS: PULSE 78; RESP 18; O2SAT 93
[2023-10-24 09:00] VITALS: BP 119/60; PULSE 63; RESP 16; TEMP 97.6; O2SAT 92
[2023-10-24] MEDS: SOD CHL 0.9%/ KCL 40MEQ 1,000 ML IV ONE (10:00)
[2023-10-24] MEDS: POTASSIUM EFFERVESENT TAB 25 MEQ PO ONE (10:59)
[2023-10-24] MEDS ORDERED: POTA8TAB38 PO (12:51)
[2023-10-24 13:00] VITALS: BP 130/61; PULSE 69; RESP 17; TEMP 98.3; O2SAT 97
[2023-10-24 13:21] VITALS: BP 119/60; PULSE 63; TEMP 36.4
== END 2023-10-24 15:20 | disposition home or self-care (01) | DRG 374 ==
LOC: EDBD 12:12 → ER 12:24 → TELE 16:01 → TELE-EAST 10-13 17:01 → EAST 10-16 12:04
PROVIDERS: ADMIT Nurse Practitioner Acute Care; ATTEND Nurse Practitioner Acute Care
PROC: 0DBP8ZX Excision of Rectum, Via Natural or Artificial Opening Endoscopic, Diagnostic (ICD-10-PCS; principal; 2023-10-14 14:33)
DX: C20 Malignant neoplasm of rectum (principal); I21.A1 Myocardial infarction type 2; I50.23 Acute on chronic systolic (congestive) heart failure; N17.0 Acute kidney failure with tubular necrosis; I13.0 Hypertensive heart and chronic kidney disease with heart failure and stage 1 through stage 4 chronic kidney disease, or unspecified chronic kidney disease; E22.2 Syndrome of inappropriate secretion of antidiuretic hormone; E11.22 Type 2 diabetes mellitus with diabetic chronic kidney disease; E66.9 Obesity, unspecified; E78.5 Hyperlipidemia, unspecified; E86.0 Dehydration; E87.6 Hypokalemia; N18.9 Chronic kidney disease, unspecified; E87.8 Other disorders of electrolyte and fluid balance, not elsewhere classified; I25.10 Atherosclerotic heart disease of native coronary artery without angina pectoris; K57.30 Diverticulosis of large intestine without perforation or abscess without bleeding; I44.7 Left bundle-branch block, unspecified; Z88.8 Allergy status to other drugs, medicaments and biological substances; Z79.82 Long term (current) use of aspirin; Z95.1 Presence of aortocoronary bypass graft; Z98.61 Coronary angioplasty status; Z88.3 Allergy status to other anti-infective agents; Z82.0 Family history of epilepsy and other diseases of the nervous system; Z82.49 Family history of ischemic heart disease and other diseases of the circulatory system; I25.2 Old myocardial infarction; Z68.28 Body mass index [BMI] 28.0-28.9, adult; Z86.73 Personal history of transient ischemic attack (TIA), and cerebral infarction without residual deficits
CPT/HCPCS: 36415; 71045; 71250; 73723; 74176; 76775; 80048; 80053; 81001; 82306; 82378; 82533; 82570; 83615; 83735; 83880; 83930; 83935; 83970; 84100; 84156; 84300; 84443; 84484; 85025; 85610; 85730; 86850; 86900; 86901; 87040; 87081; 87086; 93005; 97110; 97116; 97163; 97530; G0378; J2250; J2405; J2704; J3480